=== PATIENT | female | born 1940 | race Caucasian/White ===

== ENCOUNTER 2017-01-18 21:26 | Inpatient (IN) | payer MEDICARE, BC ==
--- NOTE | 2017-01-18 22:13 | ERPHSYRPT ---
- History of Present Illness Time Seen by Provider: 01/18/17 22:02 Historian: patient Exam Limitations: no limitations Patient Subjective Stated Complaint: pt c/o weakness and dark tarry stools since friday. also c/o lt lower abd pain that sometimes radiates to lt flank which began today Triage Nursing Assessment: pt alert and oreinted, asnwers questions approp. pt ambulatory with steady gait ntoed. respirations nonlabored with lungs cta. abd soft and nontender. bowel sounds present in all 4 quads. no stool assessed at this time Physician History: 76-year-old white female with history of congestive heart failure coronary artery disease hyperlipidemia high blood pressure myocardial infarction She arrives with complaint of a dark stools which have been tarry symptoms since Friday 3 days ago. She states she had an EGD yesterday she is due to have a colonoscopy in the future. She states today she is having left flank pain which radiates to her back. Patient states she has had dark stools she has not had obvious blood. Patient states she feels weak. Patient states she had blood work drawn this morning which showed a hemoglobin of 8.7. Patient is not vomiting Past medical history includes congestive heart failure, coronary artery disease , hyperlipidemia, high blood pressure, myocardial infarction. Past surgical history includes coronary artery bypass graft, hysterectomy, right carotid endarterectomy. Patient had a cardiac stent 3 weeks ago. Timing/Duration: day(s) (3 days) Activities at Onset: none Quality: aching Abdominal Pain Onset Location: LLQ Pain Radiation: no radiation Modifying Factors: Worsens With: analgesics, antacids, breathing, coughing, defecating, eating, exercise, lying down, movement, palpation, rest, urinating, vomiting, position, walking Associated Symptoms: back (left flank pain radiating to left lower quadrant), other (dark tarry stools), No chest pain, No diaphoresis, No diarrhea, No fever/ chills, No fatigue, No headache, No heartburn, No loss of appetite, No nausea, No neck pain, No rash, No shortness of breath, No syncope, No vomiting Previous symptoms: other (atient recently treated at [facility] had EGD performed yesterday) Allergies/Adverse Reactions: No Known Drug Allergies Allergy (Verified 01/18/17 22:00) Home Medications: Aspirin 81 gm Chew [Baby Aspirin 81 mg Chew] 81 mg PO DAILY 01/02/14 [ History] Metoprolol Succinate 50 mg [Toprol Xl 50 MG] 50 mg PO DAILY 01/02/14 [ History] Simvastatin [Zocor] 10 mg PO DAILY 01/02/14 [History] Clopidogrel Bisulfate 75 mg [PLAVIX 75 MG Tablet] 75 mg PO DAILY 01/18/17 [History] Losartan Potassium 50 mg [Cozaar 50 MG] 50 mg PO DAILY 01/18/17 [History] PANTOPRAZOLE 40 mg Tablet [Protonix 40MG Tablet] 40 mg PO QPM 01/18/17 [ History] Hx Tetanus, Diphtheria Vaccination/Date Given: Yes Hx Influenza Vaccination/Date Given: No (2013) Hx Pneumococcal Vaccination/Date Given: No (december 2013) Immunizations Up to Date: Yes - Review of Systems Constitutional: Weakness, No Fever, No Chills Eyes: No Symptoms Ears, Nose, & Throat: No Symptoms Respiratory: No Cough, No Dyspnea Cardiac: No Chest Pain, No Edema, No Syncope Abdominal/Gastrointestinal: Abdominal Pain, Melena, Other (left flank pain radiating to left lower quadrant), No Nausea, No Vomiting, No Diarrhea, No Constipation, No Hematochezia, No Dysphagia, No Appetite Changes Genitourinary Symptoms: No Dysuria Musculoskeletal: No Back Pain, No Neck Pain Skin: No Rash Neurological: No Dizziness, No Focal Weakness, No Sensory Changes Psychological: No Symptoms Endocrine: No Symptoms All Other Systems: Reviewed and Negative - Past Medical History Pertinent Past Medical History: Yes Neurological History: No Pertinent History ENT History: No Pertinent History Cardiac History: High Cholesterol, Hypertension, Other Respiratory History: No Pertinent History Endocrine Medical History: No Pertinent History Musculoskeletal History: No Pertinent History GI Medical History: Colitis History: No Pertinent History Psycho-Social History: No Pertinent History Female Reproductive Disorders: No Pertinent History Other Medical History: states recent open heart surgery - Past Surgical History Past Surgical History: Yes Neuro Surgical History: No Pertinent History Cardiac: CABG, Cardiac Catheterization, Cardiac Stent Respiratory: No Pertinent History Gastrointestinal: No Pertinent History Genitourinary: No Pertinent History Musculoskeletal: No Pertinent History Female Surgical History: Hysterectomy Other Surgical History: childbirth x two,open heart evelyn 21 2014 double bipass and carotid artery. cardiac stent [address] padilla - Social History Smoking Status: Never smoker Exposure to second hand smoke: No Drug Use: none Patient Lives Alone: No - Nursing Vital Signs Nursing Vital Signs: Initial Vital Signs Temperature 98.1 F Temperature Source Oral Pulse Rate 74 Respiratory Rate 18 Blood Pressure [Right Arm] 141/74 Pain Intensity 7 - Physical Exam General Appearance: mild distress Eye Exam: PERRL/EOMI, eyes nml inspection Ears, Nose, Throat Exam: normal ENT inspection, pharynx normal, moist mucous membranes Neck Exam: normal inspection, non-tender, supple, full range of motion Respiratory Exam: normal breath sounds, lungs clear, No respiratory distress Cardiovascular Exam: regular rate/rhythm, normal heart sounds Gastrointestinal/Abdomen Exam: soft, normal bowel sounds, tenderness (minimal tenderness left lower quadrant) Rectal Exam: normal rectal tone, other (melanotic stool) Back Exam: normal inspection, normal range of motion, No CVA tenderness, No vertebral tenderness Extremity Exam: normal inspection, normal range of motion, pelvis stable Neurologic Exam: alert, oriented x 3, cooperative, normal mood/affect, nml cerebellar function, sensation nml, No motor deficits Skin Exam: normal color, warm, dry SpO2 Interpretation: normal (97%) SpO2: 97 Oxygen Delivery: Room Air Ordered Tests: Active Orders 24 hr Category Date Time Status Bedrest with BRP/BSC ROUTINE Activity 01/19/17 00:55 Active Admission/Status Order ROUTINE Care 01/19/17 00:55 Active Call Admit Doctor for Orders ON ADMISSION Care 01/19/17 00:55 Active Code Status Order ROUTINE Care 01/19/17 00:55 Active IV Care Q6H Care 01/19/17 00:55 Active IV Insertion STAT Care 01/18/17 21:57 Completed IV Insertion-2nd Peripheral STAT Care 01/19/17 00:09 Completed Orthostatic Vital Signs STAT Care 01/18/17 22:08 Completed Telemetry Q4H Care 01/19/17 00:55 Active Consult Surgery ROUTINE Cons 01/19/17 00:55 Active Clear Liquid Diet 01/19/17 Breakfast Active CBC W DIFF AM.LAB Lab 01/19/17 04:00 Ordered CBC W DIFF Stat Lab 01/18/17 22:28 Completed CMP AM.LAB Lab 01/19/17 04:00 Ordered CMP Stat Lab 01/18/17 22:28 Completed Occult Blood,Stool Other Stat Lab 01/18/17 23:57 Completed PROTIME WITH INR Stat Lab 01/18/17 22:28 Completed PTT Stat Lab 01/18/17 22:28 Completed UA W/RFX UR CULTURE Stat Lab 01/18/17 22:08 Ordered Transfer Order Routine Transfer 01/19/17 00:09 Completed Medication Summary Generic Name Dose Route Start Last Admin Trade Name Freq PRN Reason Stop Dose Admin Sodium Chloride 1,000 mls @ 100 mls/hr 01/19/17 00:55 Sodium Chloride 0.9% 1000 Ml IV 02/18/17 00:54 .Q10H MARILY Morphine Sulfate 4 mg 01/19/17 01:38 01/19/17 01:41 Morphine Sulfate 4 Mg Inj IV 01/24/17 01:37 4 mg Q4H PRN PRN Administration PAIN Pantoprazole Sodium 40 mg 01/19/17 10:00 Protonix 40 Mg Iv IV 02/18/17 09:59 Q24H10 MARILY Discontinued Medications Generic Name Dose Route Start Last Admin Trade Name Freq PRN Reason Stop Dose Admin Sodium Chloride 1,000 mls @ 100 mls/hr 01/18/17 22:15 01/18/17 22:18 Sodium Chloride 0.9% 1000 Ml IV 02/17/17 22:14 100 mls/hr .Q10H MARILY Administration Sodium Chloride Confirm 01/18/17 22:16 Sodium Chloride 0.9% 1000 Ml Administered 01/18/17 22:17 Dose 1,000 mls @ ud .ROUTE .STK-MED ONE Pantoprazole Sodium 40 mg 01/19/17 00:06 01/19/17 00:17 Protonix 40 Mg Iv IV 01/19/17 00:07 40 mg STAT ONE Administration Pantoprazole Sodium Confirm 01/19/17 00:16 Protonix 40 Mg Iv Administered 01/19/17 00:17 Dose 40 mg IV .STK-MED ONE Lab/Rad Data: Laboratory Result Diagrams 01/18/17 22:28 01/18/17 22:28 Laboratory Results 01/19/17 01/19/17 01/18/17 Range/Units 00:22 00:20 23:57 WBC (4.0-10.5) K/mm3 RBC (4.1-5.4) M/mm3 Hgb (12.0-16.0) gm/dl Hct (35-47) % MCV (78-100) fl MCH (26-32) pg MCHC (32-36) g/dl RDW (11.5-14.0) % Plt Count (150-450) K/mm3 MPV (6-9.5) fl Gran % (36.0-66.0) % Lymphocytes % (24.0-44.0) % Monocytes % (0.0-12.0) % Eosinophils % (0.00-5.0) % Basophils % (0.0-0.4) % Basophils # (0-0.4) INR (0.8-3.0) APTT (25.3-37.0) SECONDS Sodium (136-145) mEq/L Potassium (3.5-5.1) mEq/L Chloride (98-107) mEq/L Carbon Dioxide (21-32) mEq/L Anion Gap (5-15) MEQ/L BUN (9-20) mg/dL Creatinine (0.55-1.30) mg/dl Estimated GFR ML/MIN Glucose (70-110) MG/DL Calcium (8.5-10.1) mg/dL Total Bilirubin (0.2-1.0) mg/dL AST (15-37) U/L ALT (12-78) U/L Alkaline Phosphatase (46-116) U/L Serum Total Protein (6.4-8.2) gm/dL Albumin (3.4-5.0) g/dL Stool Occult Blood POSITIVE (Negative) ABO Group Rh Factor Antibody Screen (NEGATIVE) Crossmatch COMPATIBLE COMPATIBLE (COMPATIBLE) 01/18/17 01/18/17 01/18/17 Range/Units 22:28 22:28 22:28 WBC 4.7 (4.0-10.5) K/mm3 RBC 2.55 L (4.1-5.4) M/mm3 Hgb 8.0 L (12.0-16.0) gm/dl Hct 25.0 L (35-47) % MCV 98.0 (78-100) fl MCH 31.3 (26-32) pg MCHC 32.0 (32-36) g/dl RDW 12.2 (11.5-14.0) % Plt Count 177 (150-450) K/mm3 MPV 10.7 H (6-9.5) fl Gran % 61.9 (36.0-66.0) % Lymphocytes % 25.2 (24.0-44.0) % Monocytes % 10.8 (0.0-12.0) % Eosinophils % 1.9 (0.00-5.0) % Basophils % 0.2 (0.0-0.4) % Basophils # 0.01 (0-0.4) INR 0.95 (0.8-3.0) APTT 29.3 (25.3-37.0) SECONDS Sodium 139 (136-145) mEq/L Potassium 4.4 (3.5-5.1) mEq/L Chloride 104 (98-107) mEq/L Carbon Dioxide 28.0 (21-32) mEq/L Anion Gap 11.8 (5-15) MEQ/L BUN 22 H (9-20) mg/dL Creatinine 1.12 (0.55-1.30) mg/dl Estimated GFR 50 ML/MIN Glucose 109 (70-110) MG/DL Calcium 9.0 (8.5-10.1) mg/dL Total Bilirubin 0.30 (0.2-1.0) mg/dL AST 19 (15-37) U/L ALT 18 (12-78) U/L Alkaline Phosphatase 60 (46-116) U/L Serum Total Protein 5.9 L (6.4-8.2) gm/dL Albumin 3.8 (3.4-5.0) g/dL Stool Occult Blood (Negative) ABO Group Rh Factor Antibody Screen (NEGATIVE) Crossmatch (COMPATIBLE) 01/18/17 Range/Units 00:32 WBC (4.0-10.5) K/mm3 RBC (4.1-5.4) M/mm3 Hgb (12.0-16.0) gm/dl Hct (35-47) % MCV (78-100) fl MCH (26-32) pg MCHC (32-36) g/dl RDW (11.5-14.0) % Plt Count (150-450) K/mm3 MPV (6-9.5) fl Gran % (36.0-66.0) % Lymphocytes % (24.0-44.0) % Monocytes % (0.0-12.0) % Eosinophils % (0.00-5.0) % Basophils % (0.0-0.4) % Basophils # (0-0.4) INR (0.8-3.0) APTT (25.3-37.0) SECONDS Sodium (136-145) mEq/L Potassium (3.5-5.1) mEq/L Chloride (98-107) mEq/L Carbon Dioxide (21-32) mEq/L Anion Gap (5-15) MEQ/L BUN (9-20) mg/dL Creatinine (0.55-1.30) mg/dl Estimated GFR ML/MIN Glucose (70-110) MG/DL Calcium (8.5-10.1) mg/dL Total Bilirubin (0.2-1.0) mg/dL AST (15-37) U/L ALT (12-78) U/L Alkaline Phosphatase (46-116) U/L Serum Total Protein (6.4-8.2) gm/dL Albumin (3.4-5.0) g/dL Stool Occult Blood (Negative) ABO Group O Rh Factor POSITIVE Antibody Screen NEGATIVE (NEGATIVE) Crossmatch (COMPATIBLE) - Progress Progress: improved Progress Note: 01/19/17 00:03 This is a 76-year-old white female who recently had a EGD was diagnosed as having ulcer she arrives with complaint of lower left abdominal pain symptoms going on for several days. Patient was due to have colonoscopy by Dr. Bruno in the future patient states she's been having dark tarry stools. Patient had a hemoglobin done this morning which showed a hemoglobin 8.8. On physical examination patient does not appear to be acute distress she does have some very mild left lower quadrant abdominal tenderness rectal exam shows melanotic stools which are positive for occult blood. Vitals are stable. I have ordered normal saline 100 mL per hour I ordered type and crossmatch for 2 units packed red cells to place on hold. I have discussed case with Dr. Luna content strategist for Dr. Montemayor. Will place patient on observation telemetry. Will give patient Protonix 40 mg IV tonight repeat CBC CMP and morning and write for consult with Dr. Bruno. - Departure Time of Disposition: 00:45 Departure Disposition: Observation Clinical Impression: GI bleed Qualifiers: GI bleed type/associated pathology: melena Qualified Code(s): K92.1 - Melena Condition: Fair Critical Care Time: No
[2017-01-18] MEDS ORDERED: Sodium Chloride 0.9% 1000 ML 1,000 ML IV SCH (22:15)
[2017-01-18] MEDS ORDERED: Sodium Chloride 0.9% 1000 ML 1,000 ML ONE (22:16)
[2017-01-18 22:39] LABS: BASOPHIL % 0.2 % (0.0-0.4); Eosinophil % 1.9 % (0.00-5.0); Granulocytes % 61.9 % (36.0-66.0); Lymphocytes % 25.2 % (24.0-44.0); Mean Platelet Volume 10.7 fl (6-9.5); Monocytes % 10.8 % (0.0-12.0); Platelet Count 177 K/mm3 (150-450); Red Blood Count 2.55 M/mm3 (4.1-5.4); Red Cell Distribution Width 12.2 % (11.5-14.0); White Blood Count 4.7 K/mm3 (4.0-10.5)
[2017-01-18 22:41] LABS: Mean Corpuscular Hemoglobin 31.3 pg (26-32)
[2017-01-18 22:54] LABS: INR 0.95 (0.8-3.0); PROTIME 10.7 SECONDS (9.95-12.35)
[2017-01-18 22:57] LABS: PTT 29.3 SECONDS (25.3-37.0)
[2017-01-18 22:58] LABS: ALBUMIN 3.8 g/dL (3.4-5.0); ANION GAP 11.8 MEQ/L (5-15); BILIRUBIN,TOTAL 0.3 mg/dL (0.2-1.0); Potassium 4.4 mEq/L (3.5-5.1); Total Protein 5.9 gm/dL (6.4-8.2)
[2017-01-19] MEDS ORDERED: PROTONIX 40 MG IV IV ONE ×2 (00:06→00:16)
[2017-01-19] MEDS: MORPHINE SULFATE 4 MG INJ IV PRN ×2 (01:41→22:07)
[2017-01-19 06:51] LABS: BASOPHIL % 0.5 % (0.0-0.4); Eosinophil % 2.9 % (0.00-5.0); Granulocytes % 56.9 % (36.0-66.0); Lymphocytes % 29.9 % (24.0-44.0); Mean Cell Volume 98.4 fl (78-100); Monocytes % 9.8 % (0.0-12.0); Platelet Count 153 K/mm3 (150-450); Red Blood Count 2.48 M/mm3 (4.1-5.4); Red Cell Distribution Width 12.2 % (11.5-14.0); White Blood Count 4.1 K/mm3 (4.0-10.5)
[2017-01-19 07:06] LABS: Mean Corpuscular Hemoglobin 31.8 pg (26-32)
[2017-01-19 07:29] LABS: ALBUMIN 3.4 g/dL (3.4-5.0); ANION GAP 10.1 MEQ/L (5-15); BILIRUBIN,TOTAL 0.5 mg/dL (0.2-1.0); Carbon Dioxide 28.2 mEq/L (21-32); Potassium 4.3 mEq/L (3.5-5.1); Total Protein 5.6 gm/dL (6.4-8.2)
[2017-01-19] MEDS: Sodium Chloride 0.9% 1000 ML 1,000 ML IV SCH ×2 (08:00→18:03)
[2017-01-19] MEDS ORDERED: Zofran 4 MG/2 ML VIAL IV PRN (09:24)
--- NOTE | 2017-01-19 09:24 | PCM.HP ---
History of Present Illness - Chief Complaint Chief Complaint: GI bleed History of Present Illness: is a 76 year old female who developed acute onset of LLQ and left lower flank pain last night, in association she passed a black tarry stool so came for evaluation. She recently had an EGD at [facility] by Dr Bruno that showed some healing ulcers per her report. She does take aspirin, plavix and is currently on protonix. - Review of Systems Constitutional: No Fever, No Chills Respiratory: No Cough, No Short Of Breath Cardiac: No Chest Pain, No Edema, No Syncope Abdominal/Gastrointestinal: Abdominal Pain, Melena, No Nausea, No Vomiting, No Diarrhea Genitourinary Symptoms: No Dysuria Skin: No Rash All Other Systems: Reviewed and Negative Medications & Allergies Home Medications: Home Medication List Aspirin 81 gm Chew [Baby Aspirin 81 mg Chew] 81 mg PO DAILY 01/02/14 [ History Confirmed 01/18/17] Metoprolol Succinate 50 mg [Toprol Xl 50 MG] 50 mg PO DAILY 01/02/14 [ History Confirmed 01/18/17] Simvastatin [Zocor] 10 mg PO DAILY 01/02/14 [History Confirmed 01/18/17] Clopidogrel Bisulfate 75 mg [PLAVIX 75 MG Tablet] 75 mg PO DAILY 01/18/17 [History Confirmed 01/18/17] Losartan Potassium 50 mg [Cozaar 50 MG] 50 mg PO DAILY 01/18/17 [History Confirmed 01/18/17] PANTOPRAZOLE 40 mg Tablet [Protonix 40MG Tablet] 40 mg PO QPM 01/18/17 [ History Confirmed 01/18/17] Allergies/Adverse Reactions: Allergies Allergy/AdvReac Type Severity Reaction Status Date / Time No Known Drug Allergies Allergy Verified 01/18/17 22:00 - Past Medical History Past Medical History: Yes Neurological History: No Pertinent History ENT History: No Pertinent History Cardiac History: High Cholesterol, Hypertension, Other Respiratory History: No Pertinent History Endocrine Medical History: No Pertinent History Musculoskelatal History: No Pertinent History GI Medical History: Colitis History: No Pertinent History Pyscho-Social History: No Pertinent History Reproductive Disorders: No Pertinent History Comment: states recent open heart surgery - Female History Are you now?: No - Past Surgical History Past Surgical History: Yes Neuro Surgical History: No Pertinent History Cardiac History: CABG, Cardiac Catheterization, Cardiac Stent Respiratory Surgery: No Pertinent History GI Surgical History: No Pertinent History Genitourinary Surgical Hx: No Pertinent History Musculskeletal Surgical Hx: No Pertinent History Female Surgical History: Hysterectomy Other Surgical History: childbirth x two,open heart december 25 2013 double bipass and carotid artery. cardiac stent [address] padilla - Social History Smoking Status: Never smoker Exposure to second hand smoke: No Alcohol: None Drug Use: none - Physical Exam Vital Signs: Vital Signs - 24 hr Temp Pulse Resp BP Pulse Ox 01/19/17 08:00 97.6 F 68 18 128/61 97 01/19/17 04:47 97 01/19/17 04:00 98.1 F 72 16 132/64 96 01/19/17 01:11 97.9 F 77 18 169/72 97 01/19/17 00:33 74 18 141/74 96 01/18/17 22:19 64 16 125/61 97 01/18/17 21:47 98.1 F 73 18 148/110 97 General Appearance: no apparent distress, alert Respiratory Exam: normal breath sounds, lungs clear, No respiratory distress Cardiovascular Exam: regular rate/rhythm, normal heart sounds, normal peripheral pulses Gastrointestinal/Abdomen Exam: soft, normal bowel sounds, No tenderness, No mass Extremity Exam: normal inspection, normal range of motion, pelvis stable Skin Exam: normal color, warm, dry, No rash Results - Labs Lab/Micro Results: Lab Results-Last 24 Hours 01/19/17 01/19/17 Range/Units 05:15 05:15 WBC 4.1 (4.0-10.5) K/mm3 RBC 2.48 L (4.1-5.4) M/mm3 Hgb 7.9 L (12.0-16.0) gm/dl Hct 24.4 L (35-47) % MCV 98.4 (78-100) fl MCH 31.8 (26-32) pg MCHC 32.4 (32-36) g/dl RDW 12.2 (11.5-14.0) % Plt Count 153 (150-450) K/mm3 MPV 11.0 H (6-9.5) fl Gran % 56.9 (36.0-66.0) % Lymphocytes % 29.9 (24.0-44.0) % Monocytes % 9.8 (0.0-12.0) % Eosinophils % 2.9 (0.00-5.0) % Basophils % 0.5 (0.0-0.4) % Basophils # 0.02 (0-0.4) Sodium 141 (136-145) mEq/L Potassium 4.3 (3.5-5.1) mEq/L Chloride 107 (98-107) mEq/L Carbon Dioxide 28.2 (21-32) mEq/L Anion Gap 10.1 (5-15) MEQ/L BUN 18 (9-20) mg/dL Creatinine 1.01 (0.55-1.30) mg/dl Estimated GFR 56 ML/MIN Glucose 105 (70-110) MG/DL Calcium 8.7 (8.5-10.1) mg/dL Total Bilirubin 0.50 (0.2-1.0) mg/dL AST 18 (15-37) U/L ALT 22 (12-78) U/L Alkaline Phosphatase 45 L (46-116) U/L Serum Total Protein 5.6 L (6.4-8.2) gm/dL Albumin 3.4 (3.4-5.0) g/dL - Radiology Impressions Radiology Exams & Impressions: Radiology Procedures Category Date Time Status ABDOMEN AND PELVIS W CONTRAST [CT] Urgent Exams 01/19/17 08:44 Ordered Assessment/Plan (1) GI bleed Current Visit: Yes Status: Acute Qualifiers: GI bleed type/associated pathology: melena Qualified Code(s): K92.1 - Melena Assessment & Plan: continue IV protonix at this time, possible colonoscopy in the am with Dr Montes Code(s): K92.2 - GASTROINTESTINAL HEMORRHAGE, UNSPECIFIED (2) LLQ abdominal pain Current Visit: Yes Status: Acute Assessment & Plan: patient taking PO contrast for CT abd/pelvis per surgery. Code(s): R10.32 - LEFT LOWER QUADRANT PAIN
[2017-01-19] MEDS: PROTONIX 40 MG IV IV SCH (11:13)
[2017-01-19] MEDS: Cozaar 50 MG PO SCH (11:13)
[2017-01-19] MEDS: Toprol Xl 50 MG PO SCH (11:13)
[2017-01-19 13:07] LABS: Collection Type CLEAN CATCH
[2017-01-19 13:08] LABS: ADD URINE CULTURE? NO (NO); Bilirubin NEGATIVE (NEGATIVE); Blood NEGATIVE Ery/ul (0-5); COMPLETE URINE MICROSCOPIC? NO; Glucose 50 mg/dL (NEGATIVE); Leukocyte Esterase NEGATIVE (NEGATIVE)
[2017-01-19] MEDS ORDERED: Golytely Solution 4000 ML PO ONE (14:45)
[2017-01-19] MEDS ORDERED: Lactated Ringers 1,000 ML IV SCH (15:30)
--- NOTE | 2017-01-19 19:47 | XRAY ---
Indication: Lower abdominal/pelvic pain with black stool. Dizziness. Multiple contiguous axial images obtained through the abdomen and pelvis using 80 cc of Isovue 370 contrast. Oral contrast also given. Comparison: August 02, 2014. Lung bases demonstrates minimal bibasilar dependent atelectasis. Heart is not enlarged. Stomach is distended with contrast. Contrasted bowel loops appear nonobstructed. There remains sigmoid diverticulosis with small focus of mild diverticulitis less than before. No free fluid/air. Normal appendix. Stable 2 cm gallstone, 5 mm hepatic hemangioma, calcified splenic granulomas, hysterectomy, and tiny fatty umbilical hernia. Remaining liver, gallbladder, pancreas, spleen, adrenal glands, kidneys, ureters, and bladder appear unremarkable. Again mild aortoiliac calcifications. No AAA or pathologic retroperitoneal lymphadenopathy. Osseous structures intact again with mild degenerative changes throughout the spine. Impression: 1. Sigmoid diverticulosis with small focus of mild midsigmoid diverticulitis. No free fluid/air. 2. Stable gallstone, hepatic hemangioma, and tiny fatty umbilical hernia. CTDI 17.07
[2017-01-20] MEDS: Sodium Chloride 0.9% 1000 ML 1,000 ML IV SCH ×2 (03:59→17:01)
[2017-01-20 06:24] LABS: BASOPHIL % 0.3 % (0.0-0.4); Granulocytes % 62.7 % (36.0-66.0); Lymphocytes % 24.7 % (24.0-44.0); Mean Cell Volume 99.6 fl (78-100); Mean Corpuscular Hemoglobin 31.6 pg (26-32); Mean Platelet Volume 10.8 fl (6-9.5); Monocytes % 9.3 % (0.0-12.0); Platelet Count 169 K/mm3 (150-450); Red Blood Count 2.34 M/mm3 (4.1-5.4); Red Cell Distribution Width 12.9 % (11.5-14.0)
[2017-01-20 07:08] LABS: ALBUMIN 3.2 g/dL (3.4-5.0); ALKALINE PHOSPHATASE 38 U/L (46-116); ANION GAP 10.3 MEQ/L (5-15); BLOOD UREA NITROGEN 7 mg/dL (9-20); CHLORIDE 108 mEq/L (98-107); Carbon Dioxide 28.5 mEq/L (21-32); Glucose 98 MG/DL (70-110); Potassium 3.9 mEq/L (3.5-5.1); SGOT/AST 24 U/L (15-37); SGPT/ALT 17 U/L (12-78); SODIUM 143 mEq/L (136-145); Total Protein 5.5 gm/dL (6.4-8.2)
[2017-01-20] MEDS ORDERED: PHENYLEPHRINE HCL IJ ONE (08:00)
[2017-01-20] MEDS ORDERED: DIPRIVAN 200 MG/20 ML IV ONE (08:00)
--- NOTE | 2017-01-20 08:08 | PCM.NOTE ---
Date and Time: 01/20/17 0804 Subjective Assessment: weak and dizzy no chest pain frequent bm with prep and left lower quadrant pain now no fever no bloody or black stools now Objective Exam General Appearance: no apparent distress, alert, obese Neurologic Exam: alert, oriented x 3, cooperative, normal mood/affect, nml cerebellar function, sensation nml, No motor deficits Skin Exam: normal color, warm, dry Eye Exam: PERRL, EOMI, eyes nml inspection, pale conjunctivae Ears, Nose, Throat Exam: normal ENT inspection, pharynx normal, moist mucous membranes Neck Exam: normal inspection, non-tender, supple, full range of motion Respiratory Exam: normal breath sounds, lungs clear, No respiratory distress Cardiovascular Exam: regular rate/rhythm, normal heart sounds Gastrointestinal/Abdomen Exam: soft, tenderness (left lower quadrant), No mass Extremity Exam: normal inspection, normal range of motion Back Exam: normal inspection, normal range of motion, No CVA tenderness, No vertebral tenderness Pelvic Exam: deferred Rectal Exam: deferred OBJECTIVE DATA Vital Signs: Vital Signs - 24 hr Temp Pulse Resp BP Pulse Ox 01/20/17 07:55 98.0 F 76 18 146/70 95 01/20/17 04:00 97.9 F 78 19 137/62 92 L 01/20/17 00:00 98.1 F 76 18 125/61 93 L 01/19/17 20:00 98.1 F 74 18 151/65 96 01/19/17 16:00 97.3 F 59 L 18 145/66 98 01/19/17 12:00 97.8 F 65 18 134/61 95 Pain Assessment - Last Documented Pain Intensity 7 Pain Scale Used 0-10 Pain Scale Intake and Output: Intake & Output 01/17/17 01/18/17 01/19/17 01/20/17 11:59 11:59 11:59 11:59 Intake Total 600 2303 Balance 600 2303 Weight 68.765 kg Lab Results: Lab Results-Last 24 Hours 01/19/17 01/20/17 01/20/17 Range/Units 11:30 05:15 05:15 WBC 4.0 (4.0-10.5) K/mm3 RBC 2.34 L (4.1-5.4) M/mm3 Hgb 7.4 L (12.0-16.0) gm/dl Hct 23.3 L (35-47) % MCV 99.6 (78-100) fl MCH 31.6 (26-32) pg MCHC 31.8 L (32-36) g/dl RDW 12.9 (11.5-14.0) % Plt Count 169 (150-450) K/mm3 MPV 10.8 H (6-9.5) fl Gran % 62.7 (36.0-66.0) % Lymphocytes % 24.7 (24.0-44.0) % Monocytes % 9.3 (0.0-12.0) % Eosinophils % 3.0 (0.00-5.0) % Basophils % 0.3 (0.0-0.4) % Basophils # 0.01 (0-0.4) Sodium 143 (136-145) mEq/L Potassium 3.9 (3.5-5.1) mEq/L Chloride 108 H (98-107) mEq/L Carbon Dioxide 28.5 (21-32) mEq/L Anion Gap 10.3 (5-15) MEQ/L BUN 7 L (9-20) mg/dL Creatinine 0.77 (0.55-1.30) mg/dl Estimated GFR > 60 ML/MIN Glucose 98 (70-110) MG/DL Calcium 8.3 L (8.5-10.1) mg/dL Total Bilirubin 0.40 (0.2-1.0) mg/dL AST 24 (15-37) U/L ALT 17 (12-78) U/L Alkaline Phosphatase 38 L (46-116) U/L Serum Total Protein 5.5 L (6.4-8.2) gm/dL Albumin 3.2 L (3.4-5.0) g/dL Ur Collection Type CLEAN CATCH Urine Color YELLOW (YELLOW) Urine Appearance CLEAR (CLEAR) Urine pH 5.0 (5-6) Ur Specific [place] 1.010 (1.005-1.025) Urine Protein NEGATIVE (Negative) Urine Ketones NEGATIVE (NEGATIVE) Urine Blood NEGATIVE (0-5) [place]lin/ul Urine Nitrite NEGATIVE (NEGATIVE) Urine Bilirubin NEGATIVE (NEGATIVE) Urine Urobilinogen NORMAL (0-1) mg/dL Ur Leukocyte Esterase NEGATIVE (NEGATIVE) Urine Glucose 50 (NEGATIVE) mg/dL Specimen Received 01/19/17 1130 Radiology Exams: Radiology Procedures Category Date Time Status ABDOMEN AND PELVIS W CONTRAST [CT] Urgent Exams 01/19/17 08:44 Completed Assessment/Plan (1) Diverticulitis Current Visit: Yes Status: Acute Assessment & Plan: sigmoid added flagyl and levoquin today Dr. Montes did bowel prep for colonoscopy will await his decision if proceed with this or not (2) GI bleed Current Visit: Yes Status: Acute Qualifiers: GI bleed type/associated pathology: melena Qualified Code(s): K92.1 - Melena Assessment & Plan: with PUD on protonix and carafate needs to restart asa and plavix with cardiac stent 3 weeks ago symptomatic with trending down hgb at 7.4 this am will transfuse 2 Units prbc will call Dr. Lance today about her stent and her antiplts but needs restarted as soon as possible Code(s): K92.2 - GASTROINTESTINAL HEMORRHAGE, UNSPECIFIED (3) Coronary arteriosclerosis Current Visit: Yes Status: Acute (4) Acute blood loss anemia Current Visit: Yes Status: Acute Code(s): D62 - ACUTE POSTHEMORRHAGIC ANEMIA (5) Peptic ulcer disease Current Visit: Yes Status: Acute Code(s): K27.9 - PEPTIC ULC, SITE UNSP, UNSP AC OR CHR, W/O HEMOR OR PERF
--- NOTE | 2017-01-20 08:21 | CONS ---
CONSULT DATE: 01/19/17 HISTORY OF PRESENT ILLNESS: The patient is a 76 y/o who came in with some left flank pain radiating to the left lower quadrant. She had had anemia, dizziness, and weakness and came in. sounds like she didn't have CT scan yet at this time. She had had an upper endoscopy that showed some non-bleeding, healing, gastric ulcerations. She was due to be set up eventually for colonoscopy. She had had 1 dark stool prior to coming to the hospital. Has not had any since then. Her Hgb was 7.9. She had an Hgb of 7.7-8 range when she was in the hospital at [facility]. WBC 4.1, Hgb 7.9, platelets 153,000. She is on Plavix as she had a stent placed 3 weeks ago. PAST MEDICAL HISTORY: She has had the heart disease and had the stent placed 3 weeks ago. She has had a history of gastrointestinal bleed. Otherwise, her Hgb is stable at 7.9 from 8.0 on admission yesterday. She has had heart disease, colitis, hypertension, and hypercholesterolemia. PAST SURGICAL HISTORY: Includes coronary artery bypass graft, coronary stent, cardiac cath, and hysterectomy. She had carotid artery intervention worked on in the past. HOME MEDICATIONS: Aspirin, metoprolol, simvastatin, Plavix, losartan, pantoprazole. ALLERGIES: NKDA. SOCIAL HISTORY: No smoking or alcohol abuse. REVIEW OF SYSTEMS: Otherwise, no chest pain or palpitations currently. She had some hyperlipidemia. She had the right carotid endarterectomy in the past. Other systems negative or noncontributory other than above and per preadmission questionnaire. She had the weakness and the pain left flank to left lower quadrant. It is improved a little bit today. 12 systems reviewed as noted above and per admission assessment. She denied any bloody stools this morning. She did have a dark stool prior to coming in yesterday. PHYSICAL EXAMINATION: GENERAL: No acute distress. HEENT: Sclerae nonicteric. NECK: No JVD. CHEST: Equal excursion. Nonlabored breathing. CVS: Regular rate and rhythm. ABDOMEN: Soft. No peritoneal signs currently. Her left flank pain and left lower quadrant pain is improved today. IMPRESSION: ANEMIA, HISTORY OF GASTROINTESTINAL BLEED, HISTORY OF ULCER DISEASE. She had prior colonoscopy a couple years ago that showed diverticular disease, no polyps. Feel she would benefit from colonoscopy to rule out any other lower gastrointestinal source. Otherwise, may simply be the fact that she is on the Plavix. If she kept having C-scope unremarkable and she kept having bleeding episodes, may need to consider pill cam, bleeding scan, or other work-up, but at this time, the pain is improved, but given the fact and location of her pain, feel she needs a CT scan abdomen and pelvis with IV and oral contrast to rule out any acute diverticulitis. If she does not have acute diverticulitis, likely could bowel prep her and proceed with colonoscopy while she is in the hospital at this time. She was explained the risks and benefits including, but not limited to, bleeding; infection; small risk of bowel injury or perforation possibly requiring open procedure; small risk of missed or nondiagnosis or incomplete exam possibly requiring barium enema or other studies or procedures. She understands and agrees to the planned procedure. Will check a CT scan abdomen/pelvis. If it does not show any signs of acute diverticulitis, likely will be able to bowel prep and proceed with colonoscopy tomorrow when OR time available. They understand and agree to the plan. Thank you for the consult. Dr. Steve is on-call for our group today. I was rounding on patients and he asked that I see this patient while I was down here.
[2017-01-20] MEDS: Toprol Xl 50 MG PO SCH (09:30)
[2017-01-20] MEDS: Cozaar 50 MG PO SCH (09:30)
[2017-01-20] MEDS: PROTONIX 40 MG IV IV SCH (09:31)
[2017-01-20] MEDS: Levofloxacin 500MG/100ML D5W 500 MG/100 ML BAG IV SCH (09:41)
[2017-01-20] MEDS: FLAGYL 500 MG IVPB 500 MG/100 ML BAG IV SCH ×3 (11:11→23:30)
[2017-01-20] MEDS ORDERED: Lactated Ringers 1,000 ML IV ONE (16:06)
[2017-01-20] MEDS: MORPHINE SULFATE 4 MG INJ IV PRN (16:57)
[2017-01-20] MEDS ORDERED: PLAVIX 75 MG Tablet PO ONE (17:13)
[2017-01-20] MEDS ORDERED: Ambien 5 MG Tablet PO PRN (20:26)
[2017-01-20] MEDS: Carafate SUSPENSION 1000 MG/10 ML PO SCH (20:27)
[2017-01-21] MEDS: FLAGYL 500 MG IVPB 500 MG/100 ML BAG IV SCH (05:06)
[2017-01-21 06:30] LABS: Mean Cell Volume 93.5 fl (78-100); Mean Corpuscular Hemoglobin 31.8 pg (26-32); Mean Platelet Volume 10.6 fl (6-9.5); Platelet Count 175 K/mm3 (150-450); Red Blood Count 3.55 M/mm3 (4.1-5.4); Red Cell Distribution Width 14.9 % (11.5-14.0); White Blood Count 5.3 K/mm3 (4.0-10.5)
[2017-01-21 06:52] LABS: ALBUMIN 3.2 g/dL (3.4-5.0); ALKALINE PHOSPHATASE 45 U/L (46-116); ANION GAP 12.3 MEQ/L (5-15); BLOOD UREA NITROGEN 5 mg/dL (9-20); CHLORIDE 107 mEq/L (98-107); Carbon Dioxide 27.5 mEq/L (21-32); Glucose 107 MG/DL (70-110); Potassium 3.9 mEq/L (3.5-5.1); SGOT/AST 15 U/L (15-37); SGPT/ALT 18 U/L (12-78); SODIUM 143 mEq/L (136-145); Total Protein 5.8 gm/dL (6.4-8.2)
[2017-01-21] MEDS: Carafate SUSPENSION 1000 MG/10 ML PO SCH (07:23)
[2017-01-21 07:32] LABS: ANISOCYTOSIS 1+; Eosinophil 1 % (0.00-3.0); Platelet Estimate NORMAL (NORMAL); Polychromasia 1+; Total Cells Counted 100
[2017-01-21 08:11] VITALS: BP 193/89; PULSE 75; O2SAT 92
--- NOTE | 2017-01-21 08:21 | PCM.DCORD ---
- Discharge Discharge Date: 01/21/17 Disposition: Home, Self-Care Condition: Fair Prescriptions: New Aspirin [Aspirin EC] 81 mg PO DAILY #0 tablet. Ciprofloxacin HCl [Cipro] 500 mg PO BID #12 tablet Metronidazole 500 mg [Flagyl 500 MG] 500 mg PO TID #18 tablet Sucralfate 1000 mg/10 ml [Carafate SUSPENSION 1000 MG/10 ML] 1,000 mg PO ACHS #280 ml Tramadol HCl 50 mg [Ultram 50 mg] 50 mg PO Q4H PRN #12 tablet PRN Reason: Pain Continue Simvastatin [Zocor] 10 mg PO DAILY Metoprolol Succinate 50 mg [Toprol Xl 50 MG] 50 mg PO DAILY PANTOPRAZOLE 40 mg Tablet [Protonix 40MG Tablet] 40 mg PO QPM Losartan Potassium 50 mg [Cozaar 50 MG] 50 mg PO DAILY Clopidogrel Bisulfate 75 mg [PLAVIX 75 MG Tablet] 75 mg PO DAILY Discontinued Aspirin 81 gm Chew [Baby Aspirin 81 mg Chew] 81 mg PO DAILY Follow up with: LEONILA BELCHER [Primary Care Provider] - 1 Week JACINTA VELA [ACTIVE STAFF] - 1 Week TRISH KIRK [ACTIVE STAFF] - 1 Week Forms: Patient Portal Information
[2017-01-21] MEDS ORDERED: Lasix 20 MG/2 ML IV ONE (08:30)
[2017-01-21] MEDS: Cozaar 50 MG PO SCH (08:48)
[2017-01-21] MEDS: Levofloxacin 500MG/100ML D5W 500 MG/100 ML BAG IV SCH (08:48)
[2017-01-21] MEDS: Toprol Xl 50 MG PO SCH (08:48)
[2017-01-21] MEDS: PROTONIX 40 MG IV IV SCH (08:49)
[2017-01-21] MEDS ORDERED: PLAVIX 75 MG Tablet PO SCH (10:00)
--- NOTE | 2017-01-21 10:39 | OP ---
SURGERY DATE: 01/20/17 SURGERY TIME: 1551 PREOPERATIVE DIAGNOSIS: 1. HISTORY OF ANEMIA. 2. HISTORY OF RECTAL BLEEDING/MELENA. 3. PRIOR UPPER ENDOSCOPY PER DR. VELA. 4. REQUEST FOR LOWER ENDOSCOPY. POSTOPERATIVE DIAGNOSIS: 1. POOR PREP LIMITING THE EXAM. 2. DIVERTICULOSIS. 3. DESCENDING COLON POLYP. 4. SMALL INTERNAL/EXTERNAL HEMORRHOIDS. 5. NO FRESH OR OLD BLOOD OR ACTIVE BLEEDING ON COLON EXAM. PROCEDURE: 1. Colonoscopy to terminal ileum with hot biopsy piecemeal removal small ascending colon polyp. 2. Cold biopsy random left colon to evaluate for microscopic colitis. SURGEON: Dr. Troy Montes. ANESTHESIA: MAC. ESTIMATED BLOOD LOSS: Minimal. INDICATIONS: As noted above. Risks and benefits explained in detail, but not limited to. Consent was obtained. DESCRIPTION OF PROCEDURE AND FINDINGS: The patient was taken to the endoscopy room. MAC anesthesia was introduced. After official time-out, no disagreement in planned procedure. Digital rectal exam did not reveal any rectal masses. She did have some small internal/external hemorrhoids. Video colonoscope inserted and passed up through the tortuous sigmoid, descending, and transverse colon. With external pressure, the scope was able to be passed around the ascending colon to the cecum and up into the terminal ileum. The terminal ileum was grossly unremarkable. In the proximal ascending colon, there was a small polyp that was removed in piecemeal fashion with brief bursts of cautery and hot biopsy forceps. Overall, the prep was poor very much limiting the exam with semisolid liquidy stool throughout the colon limiting the exam for small lesions. On slow, careful withdrawal over the next 12-15 minutes, there were no signs of any large polyps, masses, or obstructing lesions. She did have some diverticulosis. Because she had been having this left-sided pain in her back, elected to go ahead and do some random cold biopsies in left colon to evaluate for microscopic colitis. Adequate hemostasis was noted. Otherwise, she had some diverticulosis. She had no ortiz macroscopic colitis. No signs of any large polyps, masses, or obstructing lesions. She did have some small internal/external hemorrhoids. The scope was withdrawn. The patient tolerated the procedure well. Findings discussed with the family out in the waiting area. Again, the patient came over the weekend. Dr. Steve had been consulted and asked that I proceed with endoscopy Friday.
--- NOTE | 2017-01-21 14:02 | PCM.DS ---
Discharge Summary Date of Admission: 01/20/17 08:08 Date of Discharge: 01/21/17 Admitting Physician: LEONILA BELCHER Primary Care Provider: LEONILA BELCHER Allergies Allergies No Known Drug Allergies Allergy (Verified 01/18/17 22:00) Hospital Summary - Hospital Course Hospital Course: Mrs. Ng had a coronary stent placed about [address] Lance but the pains she was having that lead to the cardiac cath persisted with pain in her epigastric area and after the stent was placed on aspirin and plavix. She became more weak and was having frequent black stools last week. She was admitted to [facility] last week and EGD was done by Dr. Bruno and per the patient report was healing gastric ulcers with no active bleeding. Despite request [facility] records the report was still unavailable at time of discharge. She went home and was very weak and with persistent black stools and began having left lower quadrant pains as well. She presented to [place] ED where she had heme positive stools and anemia and the bleeding persisted and anemia trended down to hgb of 7.4 and light headed and weak and with the persistent bleeding and recent stenting was transfused 2 Units prbc. She was prepped and taken for colonoscopy by Dr. Montes with no active bleeding and final report pending. She did have a small focus of diverticulitis seen on the CT and with the left lower quadrant pain was treated with flagyl and levoquin. The case was discused by phone with Dr. Lance who recommends continue plavix and we discussed holding the aspirin until the bleeding stops. it seem much improved now at time of discharge she was only given a 2 Unit transfusion but it improved the hgb from 7.4 to 11. She was started on carafate 4 times a day with her protonix. and will restart her aspirin as discussed in 4 days and will continue her plavix as done and will keep f/u with Dr. Lance. She was up in the halls and actually doing exercises in her room with no complaints the day of discharge except left sided back pain with radiculopathy around to the front that improved with position changes. - Vitals & Intake/Output Vital Signs: Vital Signs Temperature 98.3 F 01/21/17 08:10 Pulse Rate 75 01/21/17 08:10 Respiratory Rate 19 01/21/17 08:10 Blood Pressure 193/89 01/21/17 08:10 O2 Sat by Pulse Oximetry 92 L 01/21/17 08:10 Intake & Output: Intake & Output 01/19/17 01/20/17 01/21/17 01/22/17 11:59 11:59 11:59 11:59 Intake Total 2592 Output Total 200 500 Balance -200 2092 Weight 68.765 kg - Lab Result Diagrams: 01/21/17 05:15 01/21/17 05:15 Lab Results-Last 24 Hrs: Lab Results-Last 24 Hours 01/20/17 01/21/17 01/21/17 Range/Units 18:00 05:15 05:15 WBC 5.3 (4.0-10.5) K/mm3 RBC 3.55 L (4.1-5.4) M/mm3 Hgb 12.1 11.3 L (12.0-16.0) gm/dl Hct 36.0 33.2 L (35-47) % MCV 93.5 (78-100) fl MCH 31.8 (26-32) pg MCHC 34.0 (32-36) g/dl RDW 14.9 H (11.5-14.0) % Plt Count 175 (150-450) K/mm3 MPV 10.6 H (6-9.5) fl Segmented Neutrophils 84 H (36.0-66.0) % Lymphocytes (Manual) 10 L (24-44) % Monocytes (Manual) 5 (0.0-12.0) % Eosinophils (Manual) 1 (0.00-3.0) % Differential Comment ABNORMAL Platelet Estimate NORMAL (NORMAL) Polychromasia 1+ Anisocytosis 1+ Sodium 143 (136-145) mEq/L Potassium 3.9 (3.5-5.1) mEq/L Chloride 107 (98-107) mEq/L Carbon Dioxide 27.5 (21-32) mEq/L Anion Gap 12.3 (5-15) MEQ/L BUN 5 L (9-20) mg/dL Creatinine 0.83 (0.55-1.30) mg/dl Estimated GFR > 60 ML/MIN Glucose 107 (70-110) MG/DL Calcium 8.8 (8.5-10.1) mg/dL Total Bilirubin 0.70 (0.2-1.0) mg/dL AST 15 (15-37) U/L ALT 18 (12-78) U/L Alkaline Phosphatase 45 L (46-116) U/L Serum Total Protein 5.8 L (6.4-8.2) gm/dL Albumin 3.2 L (3.4-5.0) g/dL Discharge Exam General Appearance: no apparent distress, alert Neurologic Exam: alert, oriented x 3, cooperative, normal mood/affect, nml cerebellar function, sensation nml, No motor deficits Skin Exam: normal color, warm, dry Eye Exam: PERRL, EOMI, eyes nml inspection Ears, Nose, Throat Exam: normal ENT inspection, pharynx normal, moist mucous membranes Neck Exam: normal inspection, non-tender, supple, full range of motion Respiratory Exam: normal breath sounds, lungs clear, No respiratory distress Cardiovascular Exam: regular rate/rhythm, normal heart sounds Gastrointestinal/Abdomen Exam: soft, No tenderness, No mass Extremity Exam: normal inspection, normal range of motion Back Exam: normal inspection, normal range of motion, other (left L3/L4 radiculopathy), No CVA tenderness, No vertebral tenderness Pelvic Exam: deferred Rectal Exam: deferred Final Diagnosis/Problem List - Final Discharge Diagnosis/Problem (1) Diverticulitis Status: Acute (2) GI bleed Status: Acute (3) Coronary arteriosclerosis Status: Acute (4) Acute blood loss anemia Status: Acute (5) Peptic ulcer disease Status: Acute - Discharge Discharge Date: 01/21/17 Disposition: Home, Self-Care Condition: Good Prescriptions: New Aspirin [Aspirin EC] 81 mg PO DAILY #0 tablet. Ciprofloxacin HCl [Cipro] 500 mg PO BID #12 tablet Metronidazole 500 mg [Flagyl 500 MG] 500 mg PO TID #18 tablet Sucralfate 1000 mg/10 ml [Carafate SUSPENSION 1000 MG/10 ML] 1,000 mg PO ACHS #280 ml Tramadol HCl 50 mg [Ultram 50 mg] 50 mg PO Q4H PRN #12 tablet PRN Reason: Pain Continue Simvastatin [Zocor] 10 mg PO DAILY Metoprolol Succinate 50 mg [Toprol Xl 50 MG] 50 mg PO DAILY PANTOPRAZOLE 40 mg Tablet [Protonix 40MG Tablet] 40 mg PO QPM Losartan Potassium 50 mg [Cozaar 50 MG] 50 mg PO DAILY Clopidogrel Bisulfate 75 mg [PLAVIX 75 MG Tablet] 75 mg PO DAILY Discontinued Aspirin 81 gm Chew [Baby Aspirin 81 mg Chew] 81 mg PO DAILY Instructions: Gastrointestinal Bleeding Additional Instructions: Follow up with at [facility] on 01/27/17 @ 8:15 a.m. start taking aspirin again on Friday01/25/17 Follow up with: LEONILA BELCHER [Primary Care Provider] - 01/28/17 9:30 am TRISH LANCE [ACTIVE STAFF] - 01/31/17 10:30 am JOELLEN MONTES [COURTESY STAFF] - 01/27/17 8:15 am Forms: Patient Portal Information
== END 2017-01-21 09:15 | disposition home or self-care (01) | DRG 392 ==
LOC: ED 21:26 → MED SURG 01-19 00:46 → OBSVTOIN 01-20 08:08
PROVIDERS: ADMIT Family Medicine; ATTEND Family Medicine
PROC: 0DBK8ZX Excision of Ascending Colon, Via Natural or Artificial Opening Endoscopic, Diagnostic (ICD-10-PCS; principal; 2017-01-20)
PROC: 0DBG8ZX Excision of Left Large Intestine, Via Natural or Artificial Opening Endoscopic, Diagnostic (ICD-10-PCS; 2017-01-20)
DX: K57.92 Diverticulitis of intestine, part unspecified, without perforation or abscess without bleeding (principal); K92.2 Gastrointestinal hemorrhage, unspecified; I25.810 Atherosclerosis of coronary artery bypass graft(s) without angina pectoris; D62 Acute posthemorrhagic anemia; Z98.61 Coronary angioplasty status; K27.9 Peptic ulcer, site unspecified, unspecified as acute or chronic, without hemorrhage or perforation; I10 Essential (primary) hypertension; K57.90 Diverticulosis of intestine, part unspecified, without perforation or abscess without bleeding; D12.4 Benign neoplasm of descending colon; Z98.890 Other specified postprocedural states; K64.8 Other hemorrhoids; E78.00 Pure hypercholesterolemia, unspecified; Z79.82 Long term (current) use of aspirin; Z79.899 Other long term (current) drug therapy; E78.5 Hyperlipidemia, unspecified
CPT/HCPCS: 00810; 36000; 36415; 36430; 74177; 80053; 81002; 82272; 85014; 85018; 85025; 85610; 85730; 86850; 86900; 86901; 86922; 88305; 93268; 96360; 96361; 99100; 99285; G0378; J1956; J2270; J2370; J2704; P9016; A9270-GY

== ENCOUNTER 2017-05-01 06:06 | Day surgery (SDC) | payer MEDICARE, BC ==
[2017-05-01] MEDS ORDERED: DEMEROL 50 MG IV ONE (06:07)
[2017-05-01] MEDS ORDERED: Versed 2 MG/2 ML Injection IV ONE (06:07)
[2017-05-01] MEDS ORDERED: Lactated Ringers 1,000 ML IV SCH (06:30)
[2017-05-01 09:53] VITALS: BP 123/61; PULSE 59; O2SAT 98
--- NOTE | 2017-05-01 13:41 | OP ---
SURGERY DATE/TIME: 05/01/2017 0850 PREOPERATIVE DIAGNOSIS: Follow up of severe gastric ulcer disease. POSTOPERATIVE DIAGNOSES: 1) Totally resolved gastric ulcer disease. 2) Grade I/III gastroesophageal reflux disease. 3) The patient has a little bit of dysmotility at the crichopharyngeal junction. It is just a little tedious starting this procedure but there is no organic fixated defect at this location. It is muscular only. I believe it is coordination only. She probably needs to be fairly deliberate chewing and swallowing. PROCEDURE: EGD. SURGEON: Abel Bruno M.D. ANESTHESIA: IVS. DESCRIPTION OF PROCEDURE: The scope was introduced other than being a little tedious at the top, esophagus normal down to gastroesophageal junction. A small rim of esophagitis grade I. No hiatal hernia. The fundus, body and antrum satisfactory. Pylorus satisfactory. Duodenal bulb satisfactory. The second portion satisfactory. The scope withdrawn and looped upon itself. No hiatal hernia noted. The scope was withdrawn. The patient tolerated the procedure satisfactorily.
== END 2017-05-01 10:00 | disposition home or self-care (01) ==
LOC: SDC 06:06
PROVIDERS: ATTEND Surgery
PROC: 0DJ08ZZ Inspection of Upper Intestinal Tract, Via Natural or Artificial Opening Endoscopic (ICD-10-PCS; principal; 2017-05-01)
DX: K21.9 Gastro-esophageal reflux disease without esophagitis (principal); J39.2 Other diseases of pharynx; I25.810 Atherosclerosis of coronary artery bypass graft(s) without angina pectoris; E78.5 Hyperlipidemia, unspecified; I10 Essential (primary) hypertension; I34.0 Nonrheumatic mitral (valve) insufficiency; Z79.899 Other long term (current) drug therapy
CPT/HCPCS: J2175; J2250

== ENCOUNTER 2020-07-14 13:00 | Inpatient (IN) | payer MEDICARE, BC ==
[2020-07-14] MEDS ORDERED: Hydromorphone 1 mg/ml Injection IV ONE (13:09)
[2020-07-14] MEDS ORDERED: Zofran 4 MG/2 ML VIAL IV ONE (13:09)
[2020-07-14] MEDS ORDERED: Sodium Chloride 0.9% 1000 ML 1,000 ML IV STA (13:09)
[2020-07-14] MEDS ORDERED: Zofran 4 MG/2 ML VIAL ONE (13:17)
[2020-07-14] MEDS ORDERED: Hydromorphone 1 mg/ml Injection ONE ×2 (13:18→19:47)
[2020-07-14] MEDS ORDERED: Sodium Chloride 0.9% 1000 ML 1,000 ML ONE (13:19)
[2020-07-14 14:08] LABS: INR 1.16 (0.8-3.0); PROTIME 13.1 SECONDS (9.95-12.35)
[2020-07-14 14:10] LABS: Absolute Neutrophil Ct (ANC) 3.52 (1.4-6.9); BASOPHIL % 0.2 % (0.0-0.4); Basophil (Absolute #) 0.01 (0-0.4); Eosinophil (Absolute #) 0 (0-0.5); Hematocrit 42.9 % (35-47); Hemoglobin 14.2 gm/dl (12.0-16.0); Lymphocyte (Absolute #) 0.66 (1.0-4.6); Lymphocytes % 14.6 % (24.0-44.0); Mean Cell Volume 94.3 fl (78-100); Mean Corpuscular Hemoglobin 31.2 pg (26-32); Mean Corpuscular Hgb Concent. 33.1 g/dl (32-36); Mean Platelet Volume 11.2 fl (7.5-11.0); Monocyte (Absolute #) 0.32 (0.0-1.3); Monocytes % 7.1 % (0.0-12.0); Neutrophil % 78.1 % (36.0-66.0); Platelet Count 165 K/mm3 (150-450); Red Blood Count 4.55 M/mm3 (4.1-5.4); White Blood Count 4.5 K/mm3 (4.0-10.5)
[2020-07-14 14:17] LABS: ALBUMIN 4.1 g/dL (3.5-5.0); ALKALINE PHOSPHATASE 78 U/L (38-126); AMYLASE 109 U/L (30-110); ANION GAP 9.9 MEQ/L (5-15); BLOOD UREA NITROGEN 17 mg/dL (7-17); CHLORIDE 97 mmol/L (98-107); Calcium 8.9 mg/dL (8.4-10.2); Carbon Dioxide 27 mmol/L (22-30); Creatinine 1 0.82 mg/dL (0.52-1.04); EST GLOMERULAR FILTRATION RATE > 60.0 ML/MIN; Glucose 143 mg/dL (74-106); LDH-LACTATE DEHYDROGENASE 208 U/L (120-246); LIPASE 210 U/L (23-300); SGOT/AST 35 U/L (14-36); SGPT/ALT 23 U/L (0-35); SODIUM 130 mmol/L (137-145); Total Protein 6.8 g/dL (6.3-8.2)
--- NOTE | 2020-07-14 14:20 | XRAY ---
Indication: Upper abdomen pain. Comparison: April 11, 2015. Portable apical lordotic chest remains hyperinflated and clear. Heart is not enlarged for AP portable technique again with CABG surgery. Stable small focal eventration right hemidiaphragm. Bony thorax intact again with osteopenia. Impression: Nonacute hyperinflated chest with chronic features.
--- NOTE | 2020-07-14 15:35 | XRAY ---
Indication: Abdomen pain. Multiple contiguous axial images obtained through the abdomen and pelvis using 80 cc Isovue 370 contrast only. Comparison: January 19, 2017. Lung bases demonstrates new bilateral patchy peripheral airspace disease left greater than right without consolidation/effusion. Heart is not enlarged. New small hiatal hernia. Noncontrasted stomach unremarkable. Distal ileum is now air distended up to 6.5 cm with fluid leveling unchanged on delayed imaging. More distal bowel loops including colon appear decompressed. Findings concerning for distal small bowel obstruction. Stable sigmoid diverticulosis. No free fluid/air. Stable distended gallbladder with 2 cm gallstone, 5 mm hepatic cyst/hemangioma, calcified splenic granulomas, bilateral renal parapelvic cysts, and hysterectomy. Remaining liver, pancreas, spleen, adrenal glands and kidneys, ureters, and bladder are unremarkable. Stable mild aortoiliac calcifications. No AAA or pathologic retroperitoneal lymphadenopathy. Osseous structures intact again with mild generative spondylosis throughout the spine and very minimal grade 1 L4 spondylolisthesis. Impression: 1. New finding for distal small bowel obstruction as detailed. 2. New bibasilar airspace disease without consolidation/effusion. 3. New small hiatal hernia. 4. Again distended gallbladder with 2 cm gallstone. 5. Stable tiny hepatic cyst/hemangioma, bilateral renal cysts, and chronic bony findings.
--- NOTE | 2020-07-14 16:02 | ERPHSYRPT ---
- History of Present Illness Time Seen by Provider: 07/14/20 13:35 Historian: patient Patient Subjective Stated Complaint: pt c/o that her lower abdomen is in constant pain and feels like someone is squeezing it Triage Nursing Assessment: Pt brought to the ER by her , bradycardic, lethargic, rates lower abdominal pain as 9/10, pain to abdomen with palpatation, skin n/w/d, last bm was yesterday, last intake was toast this AM Physician History: Is an 80-year-old female who presents with a complaint of abdominal pain for a couple of days decreased p.o. intake some nausea little vomiting she rates the lower abdominal pain 9 of 10. She also was noted to have a slow heart rate in the lethargic and weak. Timing/Duration: day(s) (2) Activities at Onset: none Quality: cramping, stabbing Abdominal Pain Onset Location: RLQ, LLQ, suprapubic Pain Radiation: no radiation Severity of Pain-Max: moderate Severity of Pain-Current: moderate Modifying Factors: Improves With: movement Associated Symptoms: fatigue, loss of appetite, nausea, vomiting Previous symptoms: no prior history Allergies/Adverse Reactions: No Known Drug Allergies Allergy (Verified 07/14/20 13:14) Home Medications: Metoprolol Succinate 50 mg [Toprol Xl 50 MG] 50 mg PO BID 01/02/14 [History] Simvastatin [Zocor] 10 mg PO DAILY 01/02/14 [History] Clopidogrel Bisulfate 75 mg [PLAVIX 75 MG Tablet] 75 mg PO DAILY 01/18/17 [History] Losartan Potassium 50 mg [Cozaar 50 MG] 25 mg PO DAILY 01/18/17 [History] PANTOPRAZOLE 40 mg Tablet [Protonix 40MG Tablet] 40 mg PO QPM 01/18/17 [History] Trazodone HCl 50 mg [Desyrel 50 mg] 50 mg PO DAILY 04/25/17 [History] Hx Tetanus, Diphtheria Vaccination/Date Given: Yes Hx Influenza Vaccination/Date Given: No (2013) Hx Pneumococcal Vaccination/Date Given: No (december 2013) Travel Risk - International Travel Have you traveled outside of the country in past 3 weeks: No - Coronavirus Screening Are you exhibiting any of the following symptoms?: Yes Symptoms: Headaches/Body Aches/Fatigue Close contact with a COVID-19 positive Pt in past 14-21 Days: No - Review of Systems Constitutional: No Fever, No Chills Eyes: No Symptoms Ears, Nose, & Throat: No Symptoms Respiratory: No Cough, No Dyspnea Cardiac: No Chest Pain, No Edema, No Syncope Abdominal/Gastrointestinal: Abdominal Pain, Nausea, Vomiting, Appetite Changes, No Diarrhea Genitourinary Symptoms: No Dysuria Musculoskeletal: No Back Pain, No Neck Pain Skin: No Rash Neurological: No Dizziness, No Focal Weakness, No Sensory Changes Psychological: No Symptoms Endocrine: No Symptoms All Other Systems: Reviewed and Negative - Past Medical History Pertinent Past Medical History: Yes Neurological History: No Pertinent History ENT History: No Pertinent History Cardiac History: Myocardial Infarction (IA) Respiratory History: No Pertinent History Endocrine Medical History: No Pertinent History Musculoskeletal History: No Pertinent History GI Medical History: Colitis, Ulcer History: No Pertinent History Psycho-Social History: No Pertinent History Female Reproductive Disorders: No Pertinent History Other Medical History: Open heart surgery 5 years ago. - Past Surgical History Past Surgical History: Yes Neuro Surgical History: No Pertinent History Cardiac: CABG, Cardiac Catheterization, Cardiac Stent Respiratory: No Pertinent History Gastrointestinal: No Pertinent History Genitourinary: No Pertinent History Musculoskeletal: No Pertinent History Female Surgical History: Hysterectomy Other Surgical History: childbirth x two,open heart december 25 2013 double bipass and carotid artery. cardiac stent [address] padilla - Social History Smoking Status: Never smoker Exposure to second hand smoke: No Drug Use: none Patient Lives Alone: No - Nursing Vital Signs Nursing Vital Signs: Initial Vital Signs Pulse Rate 47 L 07/14/20 13:03 Respiratory Rate 18 07/14/20 13:03 Blood Pressure 148/79 07/14/20 13:03 O2 Sat by Pulse Oximetry 100 07/14/20 13:03 Pain Scale Pain Intensity 9 - Physical Exam General Appearance: moderate distress, alert Eye Exam: PERRL/EOMI, eyes nml inspection Ears, Nose, Throat Exam: normal ENT inspection, pharynx normal, moist mucous membranes Neck Exam: normal inspection, non-tender, supple, full range of motion Respiratory Exam: normal breath sounds, lungs clear, No respiratory distress Cardiovascular Exam: regular rate/rhythm, normal heart sounds Gastrointestinal/Abdomen Exam: tenderness, rebound, No mass Pelvic Exam: not done Rectal Exam: deferred Back Exam: normal inspection, normal range of motion, No CVA tenderness, No vertebral tenderness Extremity Exam: normal inspection, normal range of motion, pelvis stable Neurologic Exam: alert, oriented x 3, cooperative, normal mood/affect, nml cerebellar function, sensation nml, No motor deficits Skin Exam: normal color, warm, dry SpO2: 98 - Course Nursing assessment & vital signs reviewed: Yes EKG Interpreted by Me: RATE ([id number]), Sinus Francisco, NORMAL AXIS, Right Bundle Branch Block - CT Exams Abdomen/Pelvis CT Interpretation: Other (The scan shows findings of a small bowel obstruction and new bibasilar airspace disease without consolidation or effusion a distended gallbladder with 2 cm stone) Ordered Tests: Active Orders 24 hr Category Date Time Status EKG-ER Only STAT Care 07/14/20 13:09 Active IV Insertion STAT Care 07/14/20 13:09 Active ABDOMEN AND PELVIS W CONTRAST [CT] Stat Exams 07/14/20 14:51 Completed CHEST 1 VIEW (PORTABLE) Stat Exams 07/14/20 13:09 Completed AMYLASE Stat Lab 07/14/20 13:45 Completed BLOOD CULTURE Stat Lab 07/14/20 14:35 Received CBC W DIFF Stat Lab 07/14/20 14:00 Completed CMP Stat Lab 07/14/20 13:45 Completed D-DIMER QUANTITATIVE Stat Lab 07/14/20 13:45 Completed LDH-LACTATE DEHYDROGENASE Stat Lab 07/14/20 13:45 Completed LIPASE Stat Lab 07/14/20 13:45 Completed Lactic Acid Stat Lab 07/14/20 13:09 Completed Lactic Acid Stat Lab 07/14/20 15:27 Received PROTIME WITH INR Stat Lab 07/14/20 13:45 Completed TROPONIN Q3H Lab 07/14/20 13:45 Completed TROPONIN Q3H Lab 07/14/20 16:15 Ordered TROPONIN Q3H Lab 07/14/20 19:15 Ordered TROPONIN Q3H Lab 07/14/20 22:15 Ordered TROPONIN Q3H Lab 07/15/20 01:15 Ordered UA W/RFX UR CULTURE Stat Lab 07/14/20 13:09 Ordered Medication Summary Discontinued Medications Generic Name Dose Route Start Last Admin Trade Name Freq PRN Reason Stop Dose Admin Hydromorphone HCl 0.5 mg 07/14/20 13:09 07/14/20 13:22 Hydromorphone 1 Mg/Ml Injection IV 07/14/20 13:10 0.5 mg STAT ONE Administration Hydromorphone HCl Confirm 07/14/20 13:18 Hydromorphone 1 Mg/Ml Injection Administered 07/14/20 13:19 Dose 1 mg .ROUTE .STK-MED ONE Sodium Chloride 1,000 mls @ 999 mls/hr 07/14/20 13:09 07/14/20 14:39 Sodium Chloride 0.9% 1000 Ml IV 07/14/20 14:09 Infused .Q1H1M STA Infusion Sodium Chloride Confirm 07/14/20 13:19 Sodium Chloride 0.9% 1000 Ml Administered 07/14/20 13:20 Dose 1,000 mls @ ud .ROUTE .STK-MED ONE Ondansetron HCl 4 mg 07/14/20 13:09 07/14/20 13:21 Zofran 4 Mg/2 Ml Vial IV 07/14/20 13:10 4 mg STAT ONE Administration Ondansetron HCl Confirm 07/14/20 13:17 Zofran 4 Mg/2 Ml Vial Administered 07/14/20 13:18 Dose 4 mg .ROUTE .STK-MED ONE Lab/Rad Data: Laboratory Result Diagrams 07/14/20 14:00 07/14/20 13:45 Laboratory Results 07/14/20 07/14/20 07/14/20 Range/Units 14:00 13:45 13:45 WBC 4.5 (4.0-10.5) K/mm3 RBC 4.55 (4.1-5.4) M/mm3 Hgb 14.2 (12.0-16.0) gm/dl Hct 42.9 (35-47) % MCV 94.3 (78-100) fl MCH 31.2 (26-32) pg MCHC 33.1 (32-36) g/dl RDW 12.0 (11.5-14.0) % Plt Count 165 (150-450) K/mm3 MPV 11.2 H (7.5-11.0) fl Gran % 78.1 H (36.0-66.0) % Eos # (Auto) 0 (0-0.5) Absolute Lymphs (auto) 0.66 L (1.0-4.6) Absolute Monos (auto) 0.32 (0.0-1.3) Lymphocytes % 14.6 L (24.0-44.0) % Monocytes % 7.1 (0.0-12.0) % Eosinophils % 0.0 (0.00-5.0) % Basophils % 0.2 (0.0-0.4) % Absolute Granulocytes 3.52 (1.4-6.9) Basophils # 0.01 (0-0.4) PT 13.1 H (9.95-12.35) SECONDS INR 1.16 (0.8-3.0) D-Dimer 468 (215-500) ng/mL Sodium (137-145) mmol/L Potassium (3.5-5.1) mmol/L Chloride (98-107) mmol/L Carbon Dioxide (22-30) mmol/L Anion Gap (5-15) MEQ/L BUN (7-17) mg/dL Creatinine (0.52-1.04) mg/dL Estimated GFR ML/MIN Glucose (74-106) mg/dL Lactic Acid (0.4-2.0) Calcium (8.4-10.2) mg/dL Total Bilirubin (0.2-1.3) mg/dL AST (14-36) U/L ALT (0-35) U/L Alkaline Phosphatase (38-126) U/L Lactate Dehydrogenase (120-246) U/L Troponin I < 0.012 (0.000-0.034) ng/mL Serum Total Protein (6.3-8.2) g/dL Albumin (3.5-5.0) g/dL Amylase (30-110) U/L Lipase (23-300) U/L 07/14/20 07/14/20 Range/Units 13:45 13:09 WBC (4.0-10.5) K/mm3 RBC (4.1-5.4) M/mm3 Hgb (12.0-16.0) gm/dl Hct (35-47) % MCV (78-100) fl MCH (26-32) pg MCHC (32-36) g/dl RDW (11.5-14.0) % Plt Count (150-450) K/mm3 MPV (7.5-11.0) fl Gran % (36.0-66.0) % Eos # (Auto) (0-0.5) Absolute Lymphs (auto) (1.0-4.6) Absolute Monos (auto) (0.0-1.3) Lymphocytes % (24.0-44.0) % Monocytes % (0.0-12.0) % Eosinophils % (0.00-5.0) % Basophils % (0.0-0.4) % Absolute Granulocytes (1.4-6.9) Basophils # (0-0.4) PT (9.95-12.35) SECONDS INR (0.8-3.0) D-Dimer (215-500) ng/mL Sodium 130 L (137-145) mmol/L Potassium 4.0 (3.5-5.1) mmol/L Chloride 97 L (98-107) mmol/L Carbon Dioxide 27 (22-30) mmol/L Anion Gap 9.9 (5-15) MEQ/L BUN 17 (7-17) mg/dL Creatinine 0.82 (0.52-1.04) mg/dL Estimated GFR > 60.0 ML/MIN Glucose 143 H (74-106) mg/dL Lactic Acid 2.3 H (0.4-2.0) Calcium 8.9 (8.4-10.2) mg/dL Total Bilirubin 0.50 (0.2-1.3) mg/dL AST 35 (14-36) U/L ALT 23 (0-35) U/L Alkaline Phosphatase 78 (38-126) U/L Lactate Dehydrogenase 208 (120-246) U/L Troponin I (0.000-0.034) ng/mL Serum Total Protein 6.8 (6.3-8.2) g/dL Albumin 4.1 (3.5-5.0) g/dL Amylase 109 (30-110) U/L Lipase 210 (23-300) U/L - Progress Progress: unchanged Discussed with : Marylin Will see patient in: hospital (observation) - Departure Departure Disposition: Observation Clinical Impression: Bowel obstruction Condition: Fair Critical Care Time: No Referrals: KYLER BARROS MD [Primary Care Provider] - Instructions: Acute Abdomen (Belly Pain), Adult (DC)
[2020-07-14] MEDS ORDERED: ZOFRAN ODT 4 MG PO PRN (16:03)
[2020-07-14] MEDS ORDERED: Hydromorphone 1 mg/ml Injection IV PRN (16:03)
[2020-07-14] MEDS ORDERED: Sodium Chloride 0.9% 1000 ML 1,000 ML IV SCH (16:15)
--- NOTE | 2020-07-14 17:01 | XRAY ---
Indication: NG tube placement. Comparison: Taken earlier in the day. Portable chest demonstrates new NG tube traversing the chest with tip in the stomach. Lungs underinflated accentuating cardiopulmonary structures. No new cardiopulmonary abnormalities. Contrast in system from CT performed earlier in the day.
[2020-07-14] MEDS ORDERED: ZOFRAN ODT 4 MG ONE (19:47)
[2020-07-14] MEDS ORDERED: Zofran 4 MG/2 ML VIAL IV PRN (20:12)
[2020-07-14] MEDS: Sodium Chloride 0.9% W/ 20 mEq KCl/LITER 1,000 ML IV SCH (20:27)
[2020-07-14] MEDS: DESYREL 50 MG PO SCH (22:36)
[2020-07-14] MEDS: Toprol Xl 50 MG PO SCH (22:36)
[2020-07-15] MEDS ORDERED: REMDESIVIR 200 MG in Sodium Chloride 0.9% 250 ML 250 ML IV ONE (03:56)
[2020-07-15] MEDS ORDERED: Decadron 4 MG INJ ONE (03:57)
[2020-07-15] MEDS ORDERED: REMDESIVIR IV ONE (03:58)
[2020-07-15] MEDS ORDERED: Sodium Chloride 0.9% 250 ML 250 ML IV ONE (03:58)
[2020-07-15] MEDS: Hydromorphone 1 mg/ml Injection IV PRN ×4 (04:07→22:12)
[2020-07-15] MEDS: Decadron 4 MG INJ IV SCH ×2 (04:07→22:10)
[2020-07-15 06:14] LABS: Hematocrit 42.1 % (35-47); Hemoglobin 13.8 gm/dl (12.0-16.0); Mean Cell Volume 95.7 fl (78-100); Mean Corpuscular Hemoglobin 31.4 pg (26-32); Mean Corpuscular Hgb Concent. 32.8 g/dl (32-36); Mean Platelet Volume 10.3 fl (7.5-11.0); Platelet Count 153 K/mm3 (150-450); Red Cell Distribution Width 12.2 % (11.5-14.0); White Blood Count 4.2 K/mm3 (4.0-10.5)
[2020-07-15 06:32] LABS: ALBUMIN 3.6 g/dL (3.5-5.0); ALKALINE PHOSPHATASE 61 U/L (38-126); AMYLASE 81 U/L (30-110); ANION GAP 8.5 MEQ/L (5-15); BLOOD UREA NITROGEN 11 mg/dL (7-17); CHLORIDE 101 mmol/L (98-107); Calcium 8.5 mg/dL (8.4-10.2); Carbon Dioxide 28 mmol/L (22-30); Creatinine 1 0.85 mg/dL (0.52-1.04); EST GLOMERULAR FILTRATION RATE > 60.0 ML/MIN; Glucose 108 mg/dL (74-106); LIPASE 126 U/L (23-300); SGOT/AST 32 U/L (14-36); SGPT/ALT 19 U/L (0-35); SODIUM 133 mmol/L (137-145); Total Protein 6.2 g/dL (6.3-8.2)
[2020-07-15 06:39] LABS: Potassium 5.2 mmol/L (3.5-5.1)
[2020-07-15] MEDS: Toprol Xl 50 MG PO SCH ×2 (08:01→22:10)
[2020-07-15] MEDS: Cozaar 50 MG PO SCH (08:54)
[2020-07-15 09:29] LABS: Appearance CLEAR (CLEAR); Bilirubin NEGATIVE (NEGATIVE); Blood NEGATIVE Ery/ul (0-5); Glucose NEGATIVE (NEGATIVE); Ketones SMALL (NEGATIVE); Leukocyte Esterase NEGATIVE (NEGATIVE); Mucus SLIGHT /HPF (NEGATIVE); Nitrite NEGATIVE (NEGATIVE); Protein,Urine Dip NEGATIVE (Negative); Urobilinogen NEGATIVE mg/dL (0-1)
[2020-07-15] MEDS ORDERED: ENOXAPARIN SODIUM SQ SCH (10:00)
[2020-07-15] MEDS: Zocor 10MG PO SCH (10:09)
[2020-07-15] MEDS: Protonix 40MG Tablet PO SCH (10:09)
[2020-07-15] MEDS: Sodium Chloride 0.9% W/ 20 mEq KCl/LITER 1,000 ML IV SCH (10:21)
[2020-07-15] MEDS: ECOTRIN 81 MG PO SCH (10:54)
[2020-07-15] MEDS: PLAVIX 75 MG Tablet PO SCH (10:54)
[2020-07-15] MEDS: REMDESIVIR 100 MG in Sodium Chloride 0.9% 100 ML IVPB 100 ML IV SCH (22:00)
[2020-07-15] MEDS: DESYREL 50 MG PO SCH (22:10)
[2020-07-16 06:53] LABS: Absolute Neutrophil Ct (ANC) 5.01 (1.4-6.9); BASOPHIL % 0.2 % (0.0-0.4); Basophil (Absolute #) 0.01 (0-0.4); Eosinophil (Absolute #) 0 (0-0.5); Hematocrit 43.7 % (35-47); Hemoglobin 14.4 gm/dl (12.0-16.0); Lymphocyte (Absolute #) 0.52 (1.0-4.6); Lymphocytes % 8.8 % (24.0-44.0); Monocyte (Absolute #) 0.34 (0.0-1.3); Monocytes % 5.8 % (0.0-12.0); Neutrophil % 85.2 % (36.0-66.0); Platelet Count 166 K/mm3 (150-450); Red Blood Count 4.65 M/mm3 (4.1-5.4); Red Cell Distribution Width 12.2 % (11.5-14.0); White Blood Count 5.9 K/mm3 (4.0-10.5)
[2020-07-16 07:22] LABS: INR 1.17 (0.8-3.0); PROTIME 13.2 SECONDS (9.95-12.35)
[2020-07-16 07:28] LABS: ALBUMIN 3.6 g/dL (3.5-5.0); ALKALINE PHOSPHATASE 58 U/L (38-126); ANION GAP 7.8 MEQ/L (5-15); BLOOD UREA NITROGEN 12 mg/dL (7-17); CHLORIDE 99 mmol/L (98-107); Calcium 8.6 mg/dL (8.4-10.2); Carbon Dioxide 27 mmol/L (22-30); Creatinine 1 0.76 mg/dL (0.52-1.04); EST GLOMERULAR FILTRATION RATE > 60.0 ML/MIN; Glucose 128 mg/dL (74-106); Potassium 4.6 mmol/L (3.5-5.1); SGOT/AST 30 U/L (14-36); SGPT/ALT 18 U/L (0-35); SODIUM 130 mmol/L (137-145); Total Protein 6.2 g/dL (6.3-8.2)
[2020-07-16 07:46] LABS: INR 1.24 (0.8-3.0)
[2020-07-16] MEDS: Hydromorphone 1 mg/ml Injection IV PRN ×2 (09:14→20:35)
[2020-07-16] MEDS: ECOTRIN 81 MG PO SCH (09:21)
[2020-07-16] MEDS: Cozaar 50 MG PO SCH (09:21)
[2020-07-16] MEDS: Zocor 10MG PO SCH (09:21)
[2020-07-16] MEDS: PLAVIX 75 MG Tablet PO SCH (09:21)
[2020-07-16] MEDS: Protonix 40MG Tablet PO SCH (09:22)
[2020-07-16] MEDS: Decadron 4 MG INJ IV SCH ×2 (09:22→20:36)
[2020-07-16] MEDS: Toprol Xl 50 MG PO SCH ×2 (09:23→22:00)
[2020-07-16 09:46] LABS: Slide Review 1 YES
[2020-07-16] MEDS ORDERED: Phenergan 25 MG INJ IV PRN (12:51)
[2020-07-16] MEDS: Sodium Chloride 0.9% W/ 20 mEq KCl/LITER 1,000 ML IV SCH (15:18)
[2020-07-16] MEDS: REMDESIVIR 100 MG in Sodium Chloride 0.9% 100 ML IVPB 100 ML IV SCH (20:30)
[2020-07-16] MEDS: DESYREL 50 MG PO SCH (20:36)
[2020-07-16] MEDS ORDERED: Ativan 1 MG ONE (21:26)
[2020-07-17] MEDS: Hydromorphone 1 mg/ml Injection IV PRN ×3 (03:46→15:05)
[2020-07-17 04:57] LABS: Absolute Neutrophil Ct (ANC) 8.35 (1.4-6.9); BASOPHIL % 0.1 % (0.0-0.4); Basophil (Absolute #) 0.01 (0-0.4); Eosinophil (Absolute #) 0 (0-0.5); Hematocrit 42.6 % (35-47); Hemoglobin 14.3 gm/dl (12.0-16.0); Lymphocyte (Absolute #) 0.61 (1.0-4.6); Lymphocytes % 6.4 % (24.0-44.0); Mean Cell Volume 93.4 fl (78-100); Mean Corpuscular Hemoglobin 31.4 pg (26-32); Mean Corpuscular Hgb Concent. 33.6 g/dl (32-36); Mean Platelet Volume 10.8 fl (7.5-11.0); Monocyte (Absolute #) 0.63 (0.0-1.3); Monocytes % 6.6 % (0.0-12.0); Neutrophil % 86.9 % (36.0-66.0); Platelet Count 159 K/mm3 (150-450); Red Blood Count 4.56 M/mm3 (4.1-5.4); Red Cell Distribution Width 12.3 % (11.5-14.0); White Blood Count 9.6 K/mm3 (4.0-10.5)
[2020-07-17 05:08] LABS: ALBUMIN 3.4 g/dL (3.5-5.0); ALKALINE PHOSPHATASE 55 U/L (38-126); ANION GAP 8.3 MEQ/L (5-15); BLOOD UREA NITROGEN 13 mg/dL (7-17); CHLORIDE 96 mmol/L (98-107); Calcium 8.4 mg/dL (8.4-10.2); Carbon Dioxide 28 mmol/L (22-30); Creatinine 1 0.68 mg/dL (0.52-1.04); EST GLOMERULAR FILTRATION RATE > 60.0 ML/MIN; Glucose 139 mg/dL (74-106); Potassium 4.5 mmol/L (3.5-5.1); SGOT/AST 27 U/L (14-36); SGPT/ALT 17 U/L (0-35); SODIUM 128 mmol/L (137-145)
[2020-07-17] MEDS ORDERED: Levofloxacin 500MG/100ML D5W 500 MG/100 ML BAG IV STA (06:46)
--- NOTE | 2020-07-17 09:16 | XRAY ---
Indication: Abdomen pain. Multiple contiguous axial images obtained through the abdomen and pelvis without contrast as ordered. Comparison: July 14, 2020. Lung bases again demonstrates bilateral patchy peripheral airspace disease without consolidation/effusion. Heart is not enlarged. Noncontrasted stomach unremarkable. Cecum again is abnormally air distended up to 7.3 cm with fluid leveling and paucity of distal bowel gas favoring obstruction. Stable sigmoid diverticulosis. Gallbladder remains moderately distended with 2 cm gallstone. New small perisplenic, inferior perihepatic, right colic gutter, and pelvic free fluid. No walled off fluid collection or free air. Stable calcified splenic granulomas, bilateral renal parapelvic cysts, mild aortoiliac calcifications, and hysterectomy. Remaining liver, pancreas, spleen, adrenal glands, kidneys, ureters, and bladder are unremarkable for noncontrast exam. Impression: 1. Again CT features favoring cecal obstruction. Rule out volvulus. 2. Again abnormal distended gallbladder with gallstone. 3. New small abdomen/pelvic free fluid either reactive to small bowel obstruction or gallbladder disease. 4. Stable bibasilar airspace disease. 5. Again incidental bilateral renal cysts and sigmoid diverticulosis. Comment: Preliminary interpretation was made by C. No critical discrepancy.
--- NOTE | 2020-07-17 09:36 | HP ---
CHIEF COMPLAINT: Abdominal pain, history of COVID. HISTORY OF PRESENT ILLNESS: The patient is an 80 year old white female who presented to the emergency room [place] afternoon with low abdominal pain which was constant. It felt like someone was squeezing it. She is kind of sweaty, bradycardic, pain was severe 9 over 10. She was nauseated. The pain has been going on for about eight hours before she presented. She had a bowel movement the day before coming to the emergency room. She had COVID probably for about seven days and has been recovering from that. She is having no bad cough, no shortness of breath, no change in bowel movements. The abdominal pain started today. HOME MEDICATIONS: Metoprolol 50 b.i.d., Zocor 10 q.d., Plavix 75 q.d., losartan 50 q.d., Protonix 40 q.d., trazodone 50 q.d. ALLERGIES: NKDA. CORONAVIRUS RISK: The patient does have COVID and tested positive about seven days ago. The person has COVID that she lives with. PAST MEDICAL HISTORY: Childbirth x2. PAST SURGICAL HISTORY: Hysterectomy. Bypass in 2013. Coronary artery surgically bypassed. Cardiac stents three weeks ago with Dr. Lance. REVIEW OF SYSTEMS: CONSTITUTIONAL: No fever. No chills. HEENT: No symptoms. Slightly hard of hearing. ABDOMEN: As above. Usually has no abdominal problems. No radiation of pain. : No dysuria. MUSCULOSKELETAL: No back pain. No muscle problems known. PSYCHIATRIC: No symptoms. NEUROLOGIC: The patient's son stated that she had some mild dementia and will need to keep him up to date on progress due to memory loss. Her is hard of hearing, he said. CARDIAC: The patient had a myocardial infarction apparently it has been numerous years ago. She had stents and then a bypass greater than five years ago. She is on aspirin, Plavix and statin drugs. GI: History of colitis and ulcers in the past. SOCIAL HISTORY: Nonsmoker. PHYSICAL EXAMINATION: The patient is a small, pleasant, white female. VITAL SIGNS: Pulse 47, respirations 18, blood pressure 148/79. O2 saturation 100. HEENT: Pupils equal and reactive to light. No jaundice. NECK: Supple without adenopathy. CHEST: Clear. CVS: Regular rate. Heart rate is slow. ABDOMEN: Tender all over the lower abdomen with some rebound. No masses. EXTREMITIES: Good pulses. Good color. IMPRESSION: 1) Small bowel obstruction, resolving. The patient has low abdominal pain. On CT scan there are signs of small bowel obstruction. She has some bradycardia from beta tello. She has history of recent cardiac stent. She was treated in the emergency room with some Dilaudid which did seem to help. She was made NPO. NG tube was placed. She will be treated with IV fluids and observed. Surgical consultation if she gets worse. 2) Coronary artery disease, stable. 3) COVID, stable. ADDENDUM: The next morning the patient said she has no pain, no headache. There was hardly anything. NG tube was replaced and she is being placed on clear liquids. She hopefully will be able to go home tomorrow. PROGNOSIS: Good.
[2020-07-17] MEDS ORDERED: Lactated Ringers 1,000 ML IV SCH (10:00)
[2020-07-17] MEDS: Toprol Xl 50 MG PO SCH (10:12)
[2020-07-17] MEDS: Decadron 4 MG INJ IV SCH (10:13)
[2020-07-17] MEDS: Cozaar 50 MG PO SCH (10:13)
[2020-07-17] MEDS: Zocor 10MG PO SCH (10:13)
[2020-07-17] MEDS: Protonix 40MG Tablet PO SCH (10:30)
--- NOTE | 2020-07-17 11:39 | XRAY ---
Indication: Abdomen pain. Rule out cecal volvulus. Preliminary photo offset printer abdomen demonstrates abnormal air distended cecum up to 12 cm. There is paucity of distal colonic bowel gas favoring obstruction. Solid organs unremarkable. Osseous structures intact with mild osteopenia. Following insertion of a rectal catheter, single contrast colon exam performed. Approximately 1000 cc diluted Gastrografin infused using fluoroscopic and gravity control. Multiple digital spot and overhead radiographs obtained. There is complete opacification and distention of the entire colon. 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 Incidental scattered descending and sigmoid diverticulosis. No other focal stricture, filling defect, or inflammatory changes. Post evacuatory overhead radiograph demonstrates stable abnormal air/contrast distended cecum. Remaining colon is decompressed with near complete emptying of contrast. No abnormal extravasation/leakage of contrast to suggest perforation. Impression: Single contrast colon exam demonstrates cecal volvulus as detailed. Approximately 1.2 minute fluoroscopy used.
[2020-07-17] MEDS ORDERED: Hydromorphone 1 mg/ml Injection IV ONE (17:30)
[2020-07-17 17:31] VITALS: BP 145/65; PULSE 77; O2SAT 96
== END 2020-07-17 19:00 | disposition home or self-care (01) | DRG 388 ==
LOC: ED 13:00 → MED SURG 17:59 → OBSVTOIN 07-15 12:51
PROVIDERS: ADMIT Family Medicine; ATTEND Family Medicine
DX: K56.609 Unspecified intestinal obstruction, unspecified as to partial versus complete obstruction (principal); U07.1 COVID-19; Z79.899 Other long term (current) drug therapy; Z79.01 Long term (current) use of anticoagulants; I25.10 Atherosclerotic heart disease of native coronary artery without angina pectoris; R11.2 Nausea with vomiting, unspecified
CPT/HCPCS: 36000; 36415; 71045; 74176; 74177; 74270; 80053; 81001; 82150; 82947; 83605; 83615; 83690; 84484; 85025; 85027; 85379; 85610; 87040; 93005; 93268; 94762; 96360; 96374; 96375; 99285; G0378; U0003; J1100; J1170; J1650; J1956; J2405; Q0162; A9270-GY

== ENCOUNTER 2020-07-24 06:34 | Emergency (ER) | payer MEDICARE, BC ==
--- NOTE | 2020-07-24 07:30 | ERPHSYRPT ---
- History of Present Illness Time Seen by Provider: 07/24/20 07:15 Source: patient Exam Limitations: no limitations Patient Subjective Stated Complaint: " I had 6 inches of my intestines taken out 2 days ago, and just got released from [place] yesterday. I haven't been able to urinate and it hurts really bad. " Triage Nursing Assessment: . Physician History: Patient is a 80-year-old female presents to our emergency department with complaints of urinary retention. Patient states she had a partial bowel resection 2 days ago. Patient was discharged from [facility] yesterday. Patient last urinated yesterday evening. Patient feels her bladder is full. No fever. No nausea or vomiting. No diaphoresis. No chest pain or shortness of breath. No back pain. No saddle anesthesia. No trauma symptoms are mild to moderate in intensity. No specific worsening or improving factors. Patient voices no other complaints or concerns this time. Timing/Duration: yesterday Severity: moderate Modifying Factors: Improves With: nothing Associated Symptoms: denies symptoms Allergies/Adverse Reactions: No Known Drug Allergies Allergy (Verified 07/24/20 07:44) Home Medications: Metoprolol Succinate 50 mg [Toprol Xl 50 MG] 50 mg PO BID 01/02/14 [History] Losartan Potassium 50 mg [Cozaar 50 MG] 25 mg PO DAILY 01/18/17 [History] Apixaban [Eliquis] 5 mg PO BID 07/24/20 [History] Atorvastatin Calcium 10 mg PO HS 07/24/20 [History] Diltiazem HCl [Diltiazem 24Hr ER] 1 cap PO DAILY 07/24/20 [History] Gabapentin 100 mg PO BID 07/24/20 [History] Ropinirole HCl 1 mg PO TID 07/24/20 [History] Hx Tetanus, Diphtheria Vaccination/Date Given: Yes Hx Influenza Vaccination/Date Given: Yes Hx Pneumococcal Vaccination/Date Given: Yes Immunizations Up to Date: Yes Travel Risk - International Travel Have you traveled outside of the country in past 3 weeks: No - Coronavirus Screening Are you exhibiting any of the following symptoms?: No Close contact with a COVID-19 positive Pt in past 14-21 Days: No - Review of Systems Constitutional: No Symptoms, No Fever, No Chills Eyes: No Symptoms Ears, Nose, & Throat: No Symptoms Respiratory: No Symptoms, No Cough, No Dyspnea Cardiac: No Symptoms, No Chest Pain, No Edema, No Syncope Abdominal/Gastrointestinal: No Symptoms, No Abdominal Pain, No Nausea, No Vomiting, No Diarrhea Genitourinary Symptoms: No Symptoms, No Dysuria Musculoskeletal: No Symptoms, No Back Pain, No Neck Pain Skin: No Symptoms, No Rash Neurological: No Symptoms, No Dizziness, No Focal Weakness, No Sensory Changes Psychological: No Symptoms Endocrine: No Symptoms Hematologic/Lymphatic: No Symptoms Immunological/Allergic: No Symptoms All Other Systems: Reviewed and Negative - Past Medical History Pertinent Past Medical History: Yes Neurological History: No Pertinent History ENT History: No Pertinent History Cardiac History: Myocardial Infarction ([place]) Respiratory History: No Pertinent History Endocrine Medical History: No Pertinent History Musculoskeletal History: No Pertinent History GI Medical History: Colitis, Ulcer History: No Pertinent History Psycho-Social History: No Pertinent History Female Reproductive Disorders: No Pertinent History Other Medical History: Open heart surgery 5 years ago. Intestinal resection 07/22/20 - Past Surgical History Past Surgical History: Yes Neuro Surgical History: No Pertinent History Cardiac: CABG, Cardiac Catheterization, Cardiac Stent Respiratory: No Pertinent History Gastrointestinal: No Pertinent History, Bowel Surgery Genitourinary: No Pertinent History Musculoskeletal: No Pertinent History Female Surgical History: Hysterectomy Other Surgical History: childbirth x two,open heart december 25 2013 double bipass and carotid artery. cardiac stent [address] padilal - Social History Smoking Status: Never smoker Exposure to second hand smoke: No Drug Use: none Patient Lives Alone: No - Female History Hx Now: No - Nursing Vital Signs Nursing Vital Signs: Initial Vital Signs Temperature 97.3 F 07/24/20 07:13 Pulse Rate 84 07/24/20 07:13 Respiratory Rate 16 07/24/20 07:13 Blood Pressure 143/77 07/24/20 07:13 O2 Sat by Pulse Oximetry 97 07/24/20 07:13 Pain Scale Pain Intensity 0 - Physical Exam General Appearance: no apparent distress, alert Eye Exam: PERRL/EOMI, eyes nml inspection Ears, Nose, Throat Exam: normal ENT inspection, TMs normal, pharynx normal, moist mucous membranes Neck Exam: normal inspection, non-tender, supple, full range of motion Respiratory Exam: normal breath sounds, lungs clear, No respiratory distress Cardiovascular Exam: regular rate/rhythm, normal heart sounds, normal peripheral pulses Gastrointestinal/Abdomen Exam: soft, normal bowel sounds, other (Suprapubic tenderness. Bladder appears to be full. Findings are consistent with urinary retention.), No tenderness, No mass Back Exam: normal inspection, normal range of motion, No CVA tenderness, No vertebral tenderness Extremity Exam: normal inspection, normal range of motion, pelvis stable Neurologic Exam: alert, oriented x 3, cooperative, normal mood/affect, sensation nml, No motor deficits Skin Exam: normal color, warm, dry, other (Surgical incision intact. There is a little blood on the dressing. No active bleeding.), No rash Lymphatic Exam: No adenopathy SpO2 Interpretation: normal SpO2: 97 O2 Delivery: Room Air - Course Nursing assessment & vital signs reviewed: Yes Ordered Tests: Active Orders 24 hr Category Date Time Status Cath [Catheter-Chemult Mcginnis] STAT Care 07/24/20 07:24 Active CULTURE,URINE Stat Lab 07/24/20 07:27 Ordered UA W/RFX UR CULTURE Stat Lab 07/24/20 07:27 Completed Lab/Rad Data: Laboratory Results 07/24/20 Range/Units 07:27 Urine Color YELLOW (YELLOW) Urine Appearance CLEAR (CLEAR) Urine pH 7.0 (5-6) Ur Specific [place] 1.009 (1.005-1.025) Urine Protein NEGATIVE (Negative) Urine Ketones NEGATIVE (NEGATIVE) Urine Blood NEGATIVE (0-5) [place]lin/ul Urine Nitrite NEGATIVE (NEGATIVE) Urine Bilirubin NEGATIVE (NEGATIVE) Urine Urobilinogen 2 (0-1) mg/dL Ur Leukocyte Esterase NEGATIVE (NEGATIVE) Urine WBC (Auto) NONE (0-5) /HPF Urine RBC (Auto) NONE (0-2) /HPF U Epithel Cells (Auto) NONE (FEW) /HPF Urine Bacteria (Auto) NONE (NEGATIVE) /HPF Urine Culture Reflexed ORDERED SEPARATELY (NO) Urine Glucose 50 (NEGATIVE) mg/dL - Progress Progress: improved Progress Note: 07/24/20 08:35 500 cc clear urine expressed after insertion of Mcginnis catheter. Patient currently asymptomatic. Vital stable. Patient now sleeping. Patient states she did not sleep well because of suprapubic pain from urinary retention. Surgical wound was redressed. UA negative for UTI. Case discussed with the [facility]. Dr. Steven Bruno advises keeping the Mcginnis catheter in. Patient to see Dr. Hamilton Bruno tomorrow in the [place] office. Patient agrees to follow-up with her doctors within 48 hours for reevaluation. 07/24/20 09:26 Counseled pt/family regarding: lab results, diagnosis, need for follow-up - Departure Departure Disposition: Home Clinical Impression: Urinary retention, Surgical wound present Condition: Stable Critical Care Time: No Referrals: KYLER BARROS MD [Primary Care Provider] - Additional Instructions: Please follow-up with Dr. Hamilton Bruno tomorrow July 24, 2020 for a reevaluation. Dr. Bruno's office is in [facility]. Discharge/Care Plan GO WHITMORE was seen on 07/24/20 in the Emergency Room. The patient was counseled regarding Diagnosis,Lab results, Imaging studies, need for follow up and when to return to the Emergency Room. Prescriptions given: Discharge Note I have spoken with the patient and/or caregivers. I have explained the patient's condition, diagnosis and treatment plan based on the information available to me at this time. I have answered the patient's and/or caregiver's questions and addressed any concerns. The patient and/or caregivers have as good understanding of the patient's diagnosis, condition and treatment plan as can be expected at this point. The vital signs have been stable. The patient's condition is stable and appropriate for discharge from the emergency department. The patient will pursue further outpatient evaluation with the primary care physician or other designated or consulting physician as outlined in the discharge instructions. The patient and/or caregivers are agreeable to this plan of care and follow-up instructions have been explained in detail. The patient and/or caregivers have received these instruction. The patient/and or caregivers are aware that any significant change in condition or worsening of symptoms should prompt an immediate return to this or the closest emergency department or call 911.
[2020-07-24 07:37] LABS: Appearance CLEAR (CLEAR); Bilirubin NEGATIVE (NEGATIVE); Blood NEGATIVE Ery/ul (0-5); Glucose 50 mg/dL (NEGATIVE); Ketones NEGATIVE (NEGATIVE); Leukocyte Esterase NEGATIVE (NEGATIVE); Nitrite NEGATIVE (NEGATIVE); Protein,Urine Dip NEGATIVE (Negative); Specific Gravity 1.009 (1.005-1.025); Urobilinogen 2 mg/dL (0-1)
[2020-07-24 10:37] VITALS: BP 149/84; PULSE 88; O2SAT 98
== END 2020-07-24 10:40 | disposition home or self-care (01) ==
LOC: ED 06:34
DX: R33.9 Retention of urine, unspecified (principal); Z98.890 Other specified postprocedural states; Z79.899 Other long term (current) drug therapy
CPT/HCPCS: 51702; 81001; 87086; 99284

== ENCOUNTER 2021-05-20 06:58 | Emergency (ER) | payer MEDICARE, BC ==
[2021-05-20] MEDS ORDERED: TYLENOL 325 MG PO STA (07:20)
[2021-05-20] MEDS ORDERED: TYLENOL 325 MG ONE (07:22)
--- NOTE | 2021-05-20 08:12 | ERPHSYRPT ---
- History of Present Illness Time Seen by Provider: 05/20/21 07:12 Source: patient Exam Limitations: no limitations Patient Subjective Stated Complaint: Pt states that she has been having pain in her left leg for the past couple of days and thinks that she has a blood clot Triage Nursing Assessment: pt was brought to the ER by her , hypertensive, rates pain as 8/10, reports that the pain began in her lower left calf and has moved up just above the back side of her knee, leg is cool and pulses are normal, no history of DVT's, doesn't appear to be in any distress Physician History: 81 years old female with history of atrial fibrillation on Eliquis, hypertension, restless leg syndrome presented to the ER with chief complaint of left lower extremity pain dull aching mild intermittent for the last 2 days. P atient report initially it started in the lateral calf and now having some discomfort of the left lateral thigh without any obvious swelling redness. Denies any fall or trauma. Patient is very concerned about her having DVT. No fever or chills reported. Method of Injury: unknown Occurred: days ago (2) Quality: intermittent, dullness Severity of Pain-Max: mild Severity of Pain-Current: mild Lower Extremities Pain: leg: left, thigh: left Modifying Factors: Improves With: nothing Associated Symptoms: none Allergies/Adverse Reactions: No Known Drug Allergies Allergy (Verified 05/20/21 07:14) Home Medications: Metoprolol Succinate 50 mg [Toprol Xl 50 MG] 50 mg PO BID 01/02/14 [History] Losartan Potassium 50 mg [Cozaar 50 MG] 25 mg PO DAILY 01/18/17 [History] Apixaban [Eliquis] 5 mg PO BID 07/24/20 [History] Atorvastatin Calcium 10 mg PO HS 07/24/20 [History] Diltiazem HCl [Diltiazem 24Hr ER] 1 cap PO DAILY 07/24/20 [History] Gabapentin 100 mg PO BID 07/24/20 [History] Ropinirole HCl 1 mg PO DAILY 07/24/20 [History] Hx Tetanus, Diphtheria Vaccination/Date Given: Yes Hx Influenza Vaccination/Date Given: Yes Hx Pneumococcal Vaccination/Date Given: Yes Travel Risk - International Travel Have you traveled outside of the country in past 3 weeks: No - Coronavirus Screening Are you exhibiting any of the following symptoms?: No Close contact with a COVID-19 positive Pt in past 14-21 Days: No - Vaccine Status Have you recieved a Covid-19 vaccination: Yes 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: [email or web address] - Vaccination Dates Date of 2cond Vaccination (if applicable): unknown - Review of Systems Constitutional: No Symptoms Ears, Nose, & Throat: No Symptoms Respiratory: No Symptoms Cardiac: No Symptoms Abdominal/Gastrointestinal: No Symptoms Genitourinary Symptoms: No Symptoms Musculoskeletal: Myalgias Skin: No Symptoms Neurological: No Symptoms Psychological: No Symptoms Endocrine: No Symptoms Hematologic/Lymphatic: No Symptoms Immunological/Allergic: No Symptoms - Past Medical History Pertinent Past Medical History: Yes Neurological History: No Pertinent History ENT History: No Pertinent History Cardiac History: Myocardial Infarction ([place]) Respiratory History: No Pertinent History Endocrine Medical History: No Pertinent History Musculoskeletal History: No Pertinent History GI Medical History: Colitis, Ulcer History: No Pertinent History Psycho-Social History: No Pertinent History Female Reproductive Disorders: No Pertinent History Other Medical History: Open heart surgery 5 years ago. Intestinal resection 07/22/20 - Past Surgical History Past Surgical History: Yes Neuro Surgical History: No Pertinent History Cardiac: CABG, Cardiac Catheterization, Cardiac Stent Respiratory: No Pertinent History Gastrointestinal: No Pertinent History, Bowel Surgery Genitourinary: No Pertinent History Musculoskeletal: No Pertinent History Female Surgical History: Hysterectomy Other Surgical History: childbirth x two,open heart december 25 2013 double bipass and carotid artery. cardiac stent [address] padilla - Social History Smoking Status: Never smoker Exposure to second hand smoke: No Drug Use: none Patient Lives Alone: No - Female History Hx Now: No - Nursing Vital Signs Nursing Vital Signs: Initial Vital Signs Temperature 97.2 F 05/20/21 07:07 Pulse Rate 73 05/20/21 07:07 Blood Pressure 191/104 05/20/21 07:07 O2 Sat by Pulse Oximetry 98 05/20/21 07:07 Pain Scale Pain Intensity 8 - Physical Exam General Appearance: no apparent distress, alert, anxiety Eyes, Ears, Nose, Throat Exam: normal ENT inspection Neck Exam: normal inspection, full range of motion Cardiovascular/Respiratory Exam: normal breath sounds, irregularly irregular (Normal rate) Gastrointestinal/Abdominal Exam: non-tender, soft Hips Exam: bilateral: non-tender, normal inspection, normal range of motion, no evidence of injury Legs Exam: bilateral leg: non-tender, normal inspection, normal range of motion, no evidence of injury Knees Exam: bilateral knee: non-tender, normal inspection, normal range of motion, no evidence of injury Ankle Exam: bilateral ankle: non-tender, normal inspection, normal range of motion, no evidence of injury Foot Exam: bilateral foot: non-tender, normal inspection, normal range of motion, no evidence of injury Neuro/Tendon Exam: normal sensation, normal motor functions, normal tendon functions Mental Status Exam: alert, oriented x 3, cooperative Skin Exam: normal color SpO2 Interpretation: normal SpO2: 98 O2 Delivery: Room Air Ordered Tests: Active Orders 24 hr Category Date Time Status D-DIMER QUANTITATIVE Stat Lab 05/20/21 07:35 Completed Medication Summary Discontinued Medications Generic Name Dose Route Start Last Admin Trade Name Torres PRN Reason Stop Dose Admin Acetaminophen 650 mg 05/20/21 07:20 05/20/21 07:22 Acetaminophen 325 Mg Tablet PO 05/20/21 07:21 650 mg STAT STA Administration Acetaminophen Confirm 05/20/21 07:22 Acetaminophen 325 Mg Tablet Administered 05/20/21 07:23 Dose 650 mg .ROUTE [employer] ONE Lab/Rad Data: Laboratory Results 05/20/21 Range/Units 07:35 D-Dimer < 215 L (215-500) ng/mL - Progress Progress: improved Progress Note: 05/20/21 08:09 She does not have any difficulty ambulation. No sign symptoms suggesting cellulitis. No bony tenderness. No muscular tenderness at all. She walked without any difficulty while in here. No soft tissue swelling. Good/well palpable dorsalis pedis and cap refill less than 3 seconds. Did not miss dose of Eliquis. I have obtained a D-dimer which is negative. Patient is low risk for DVT with her taking Eliquis regularly and a negative D-dimer. Do not think needs ultrasound Doppler. Normal bony tenderness or trauma, do not think needs any other imaging. Stable for discharge. Recommended taking Tylenol as needed. Counseled pt/family regarding: lab results, diagnosis, need for follow-up - Departure Departure Disposition: Home Clinical Impression: Leg pain, left Condition: Stable Critical Care Time: No Referrals: KYLER BARROS MD [Primary Care Provider] - Follow up/PCP as directed (1-2 days for reevaluation) Instructions: Muscle and Bone Pain (DC), Deep Vein Thrombosis (Blood Clots in the Legs) (DC) Additional Instructions: Use compression stockings. Continue with your Eliquis. Take Tylenol as needed. Follow-up with your primary care for reevaluation. Return to ER if have continuous pain are developing swelling/redness/difficulty ambulation/fever chills etc.
== END 2021-05-20 08:19 | disposition home or self-care (01) ==
LOC: ED 06:58
DX: M79.662 Pain in left lower leg (principal); Z79.01 Long term (current) use of anticoagulants; Z79.899 Other long term (current) drug therapy
CPT/HCPCS: 36415; 85379; 99283; A9270-GY

== ENCOUNTER 2021-06-09 22:05 | Emergency (ER) | payer MEDICARE, BC ==
[2021-06-09] MEDS ORDERED: MORPHINE SULFATE 4 MG INJ IM ONE (22:37)
--- NOTE | 2021-06-09 22:46 | ERPHSYRPT ---
- History of Present Illness Time Seen by Provider: 06/09/21 22:20 Source: patient Exam Limitations: no limitations Patient Subjective Stated Complaint: " I feel a couple weeks ago and my leg won't stop hurting ". Triage Nursing Assessment: Pt arrives to ER ambulatory, stating drove her here due to her increased pain in her left hip that started a couple weeks ago after experiencing a hard fall onto wood floor. Pt ambulates with a slightly slow gait. Pt has no obvious deformity or abnormality. Pt states pain is deep in her leg and radiates around to buttock and down front of left thigh. States pain is constant dull ache and keeps getting worse. Pt skin is pink, warm, and dry. Respirations are unlabored and easy. Pt denies any further complaints. Physician History: 81 years old female on Eliquis presented to ER with chief complaint of left lateral thigh/hip pain for the last 2 weeks after she had a ground-level fall. Patient reports having x-rays done which were negative. Pain is dull aching, moderate intensity, more with ambulation and better with resting. No difficulty movements of hip/knee/ankle. No swelling of the leg. No numbness tingling weakness of left lower extremity. No fever or chills reported. Method of Injury: fell Occurred: days ago (14) Quality: sharpness Severity of Pain-Max: moderate Severity of Pain-Current: moderate Lower Extremities Pain: hip: left, leg: left Modifying Factors: Improves With: rest. Worsens With: movement Associated Symptoms: No unable to bear weight Allergies/Adverse Reactions: No Known Drug Allergies Allergy (Verified 05/20/21 07:14) Home Medications: Metoprolol Succinate 50 mg [Toprol Xl 50 MG] 50 mg PO BID 01/02/14 [History] Losartan Potassium 50 mg [Cozaar 50 MG] 25 mg PO DAILY 01/18/17 [History] Apixaban [Eliquis] 5 mg PO BID 07/24/20 [History] Atorvastatin Calcium 10 mg PO HS 07/24/20 [History] Diltiazem HCl [Diltiazem 24Hr ER] 1 cap PO DAILY 07/24/20 [History] Gabapentin 100 mg PO BID 07/24/20 [History] Hx Tetanus, Diphtheria Vaccination/Date Given: No Hx Influenza Vaccination/Date Given: Yes Hx Pneumococcal Vaccination/Date Given: No Immunizations Up to Date: Yes Travel Risk - International Travel Have you traveled outside of the country in past 3 weeks: No - Coronavirus Screening Are you exhibiting any of the following symptoms?: No Close contact with a COVID-19 positive Pt in past 14-21 Days: No - Vaccine Status Have you recieved a Covid-19 vaccination: Yes Tariff Counsel: Unknown - Vaccination Dates Dates if Unknown: n/a - Review of Systems Constitutional: No Symptoms Ears, Nose, & Throat: No Symptoms Respiratory: No Symptoms Cardiac: No Symptoms Abdominal/Gastrointestinal: No Symptoms Genitourinary Symptoms: No Symptoms Musculoskeletal: Fall, Injury, Myalgias Skin: No Symptoms Neurological: No Symptoms Psychological: No Symptoms Endocrine: No Symptoms Hematologic/Lymphatic: No Symptoms Immunological/Allergic: No Symptoms - Past Medical History Pertinent Past Medical History: Yes Neurological History: No Pertinent History ENT History: No Pertinent History Cardiac History: Myocardial Infarction ([place]) Respiratory History: No Pertinent History Endocrine Medical History: No Pertinent History Musculoskeletal History: No Pertinent History GI Medical History: Colitis, Ulcer History: No Pertinent History Psycho-Social History: No Pertinent History Female Reproductive Disorders: No Pertinent History Other Medical History: Open heart surgery 5 years ago. Intestinal resection 07/22/20 - Past Surgical History Past Surgical History: Yes Neuro Surgical History: No Pertinent History Cardiac: CABG, Cardiac Catheterization, Cardiac Stent Respiratory: No Pertinent History Gastrointestinal: No Pertinent History, Bowel Surgery Genitourinary: No Pertinent History Musculoskeletal: No Pertinent History Female Surgical History: Hysterectomy Other Surgical History: childbirth x two,open heart december 25 2013 double bipass and carotid artery. cardiac stent [address] padilla - Social History Smoking Status: Never smoker Exposure to second hand smoke: No Drug Use: none Patient Lives Alone: No - Female History Hx Now: No - Nursing Vital Signs Nursing Vital Signs: Initial Vital Signs Pulse Rate 66 06/09/21 22:18 Respiratory Rate 16 06/09/21 22:18 Blood Pressure 163/74 06/09/21 22:18 O2 Sat by Pulse Oximetry 95 06/09/21 22:18 Pain Scale Pain Intensity 9 - Physical Exam General Appearance: no apparent distress, alert Eyes, Ears, Nose, Throat Exam: normal ENT inspection Neck Exam: normal inspection, supple, full range of motion Cardiovascular/Respiratory Exam: normal breath sounds, regular rate/rhythm Gastrointestinal/Abdominal Exam: non-tender, soft Back Exam: normal inspection, normal range of motion Hips Exam: bilateral: non-tender, normal inspection, normal range of motion, no evidence of injury Legs Exam: bilateral leg: non-tender, normal inspection, normal range of motion, no evidence of injury Knees Exam: bilateral knee: non-tender, normal inspection, normal range of motion, no evidence of injury Ankle Exam: bilateral ankle: non-tender, normal inspection, normal range of motion, no evidence of injury Foot Exam: bilateral foot: non-tender, normal inspection, normal range of motion Neuro/Tendon Exam: normal sensation, normal motor functions, normal tendon functions Mental Status Exam: alert, oriented x 3, cooperative Skin Exam: normal color SpO2 Interpretation: normal SpO2: 95 O2 Delivery: Room Air Ordered Tests: Medication Summary Discontinued Medications Generic Name Dose Route Start Last Admin Trade Name Freq PRN Reason Stop Dose Admin Morphine Sulfate 4 mg 06/09/21 22:37 Morphine Sulfate 4 Mg/Ml Injection IM 06/09/21 22:38 STAT ONE - Progress Progress: improved Progress Note: She is given morphine for symptomatic relief. No signs of cellulitis. No obvious bony tenderness. Intact range of motion. I have obtained x-rays which are negative. Good bounding left lower extremity pulses. Tenderness is more on the lateral side. Did not miss dose of Eliquis. Recommended Tylenol and outpatient follow-up. Discussed signs symptoms of worsening needing return to ER which she seems understanding. Counseled pt/family regarding: diagnosis, need for follow-up, rad results - Departure Departure Disposition: Home Clinical Impression: Leg pain, left Condition: Stable Critical Care Time: No Referrals: KYLER BARROS MD [Primary Care Provider] - Follow up/PCP as directed (In 2 days for reevaluation) ORTHO - SAMANTHA DEUTSCH NP [NON-STAFF PHY W/O PRIVILEGES] - Follow up/PCP as directed (In 2 days for reevaluation) Instructions: Muscle Strain (DC) Additional Instructions: Take Tylenol as needed. Follow-up with primary care/Ortho for reevaluation. Return to ER for worsening pain, swelling, difficulty ambulation, redness, fever chills etc.
[2021-06-09] MEDS ORDERED: MORPHINE SULFATE 4 MG INJ ONE (22:54)
[2021-06-10 00:12] VITALS: BP 126/62; PULSE 63; O2SAT 95
--- NOTE | 2021-06-10 08:04 | XRAY ---
Indication: Pain following fall 2 weeks ago. Comparison: None 2 view left hip demonstrates mild osteopenia. No other bony, articular, or soft tissue abnormalities.
== END 2021-06-10 00:11 | disposition home or self-care (01) ==
LOC: ED 22:05
DX: M79.652 Pain in left thigh (principal); M25.552 Pain in left hip; I25.2 Old myocardial infarction; Z79.01 Long term (current) use of anticoagulants
CPT/HCPCS: 73502; 96372; 99284; J2270

== ENCOUNTER 2022-05-27 04:48 | Emergency (ER) | payer MEDICARE, BC ==
[2022-05-27 05:01] VITALS: BP 192/89; PULSE 64; O2SAT 96
[2022-05-27] MEDS ORDERED: Hydromorphone 1 mg/ml Injection ONE (05:12)
[2022-05-27] MEDS ORDERED: NORCO 5/325 MG ONE (05:12)
[2022-05-27] MEDS: NORCO 5/325 MG PO ONE (05:15)
--- NOTE | 2022-05-27 05:15 | ERPHSYRPT ---
- History of Present Illness Time Seen by Provider: 05/27/22 05:10 Source: patient Exam Limitations: no limitations Patient Subjective Stated Complaint: pt states she had a dental implant placed on right side of lower jaw last friday. pt has swelling and pain on left side of face that she rates as 7/10 Triage Nursing Assessment: pt is alert and oriented. walked to room without assist, face is noticably swollen and painful. pt rates pain as 7/10. Physician History: Patient is an 82-year-old white female who presents with a complaint of dental pain. For the past year her dentist has been working on an implant in her right mandibular area recently the implant became infected recently she saw the dentist. She has had pain all night unable to sleep.Her states that he is taking her to the dentist [place] today. Timing/Duration: gradual onset Severity: severe ENT Location: dental Prearrival Treatment: prescription meds (Amoxicillin) Modifying Factors: Improves With: nothing Associated Symptoms: facial pain/swelling, jaw pain Allergies/Adverse Reactions: No Known Drug Allergies Allergy (Verified 05/20/21 07:14) Home Medications: Metoprolol Succinate 50 mg [Toprol Xl 50 MG] 50 mg PO BID 01/02/14 [History] Losartan Potassium 50 mg [Cozaar 50 MG] 25 mg PO DAILY 01/18/17 [History] Apixaban [Eliquis] 5 mg PO BID 07/24/20 [History] Atorvastatin Calcium 10 mg PO HS 07/24/20 [History] Diltiazem HCl [Diltiazem 24Hr ER] 1 cap PO DAILY 07/24/20 [History] Gabapentin 100 mg PO BID 07/24/20 [History] Hx Tetanus, Diphtheria Vaccination/Date Given: No Hx Influenza Vaccination/Date Given: Yes Hx Pneumococcal Vaccination/Date Given: No Travel Risk - International Travel Have you traveled outside of the country in past 3 weeks: No - Coronavirus Screening Are you exhibiting any of the following symptoms?: No Close contact with a COVID-19 positive Pt in past 14-21 Days: No - Vaccine Status Have you recieved a Covid-19 vaccination: Yes 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 - Vaccination Dates Date of 2cond Vaccination (if applicable): unknown - Review of Systems Constitutional: No Fever, No Chills Eyes: No Symptoms Ears, Nose, & Throat: No Symptoms, Mouth Pain Respiratory: No Cough, No Dyspnea Cardiac: No Chest Pain, No Edema, No Syncope Abdominal/Gastrointestinal: No Abdominal Pain, No Nausea, No Vomiting, No Diarr hea Genitourinary Symptoms: No Dysuria Musculoskeletal: No Back Pain, No Neck Pain Skin: No Rash Neurological: No Dizziness, No Focal Weakness, No Sensory Changes Psychological: No Symptoms Endocrine: No Symptoms All Other Systems: Reviewed and Negative - Past Medical History Pertinent Past Medical History: Yes Neurological History: No Pertinent History ENT History: No Pertinent History Cardiac History: High Cholesterol, Hypertension, Myocardial Infarction ([place]) Respiratory History: No Pertinent History Endocrine Medical History: No Pertinent History Musculoskeletal History: No Pertinent History GI Medical History: Colitis, Ulcer History: No Pertinent History Psycho-Social History: No Pertinent History Female Reproductive Disorders: No Pertinent History Other Medical History: Open heart surgery 5 years ago. Intestinal resection 07/22/20 - Past Surgical History Past Surgical History: Yes Neuro Surgical History: No Pertinent History Cardiac: CABG, Cardiac Catheterization, Cardiac Stent Respiratory: No Pertinent History Gastrointestinal: No Pertinent History, Bowel Surgery Genitourinary: No Pertinent History Musculoskeletal: No Pertinent History Female Surgical History: Hysterectomy Other Surgical History: childbirth x two,open heart december 25 2013 double bipass and carotid artery. cardiac stent [address] padilla - Social History Smoking Status: Never smoker Exposure to second hand smoke: No Drug Use: none Patient Lives Alone: No - Nursing Vital Signs Nursing Vital Signs: Initial Vital Signs Temperature 97.8 F 05/27/22 04:50 Pulse Rate 64 05/27/22 04:50 Respiratory Rate 18 05/27/22 04:50 Blood Pressure 192/89 05/27/22 04:50 O2 Sat by Pulse Oximetry 96 05/27/22 04:50 Pain Scale Pain Intensity 7 - Physical Exam General Appearance: moderate distress, alert, other (Swelling of the right mandibular area) Eye Exam: right eye: vision changes, bilateral eye: PERRL, EOMI Ear Exam: bilateral ear: auricle normal, canal normal Nasal Exam: normal inspection Throat Exam: pharynx normal, moist mucus membranes, tongue swollen (Swelling of the face and the right side of the tongue evidence of recent dental work with sutures in place.), No tonsillar exudate, No voice changes Neck Exam: normal inspection, supple Cardiovascular/Respiratory Exam: no respiratory distress, No JVD Neurologic Exam: alert, oriented x 3 Skin Exam: normal color, warm, dry SpO2 Interpretation: normal SpO2: 96 O2 Delivery: Room Air - Course Nursing assessment & vital signs reviewed: Yes - Progress Progress: improved - Departure Departure Disposition: Home Clinical Impression: Dental abscess Condition: Stable Critical Care Time: No Referrals: KYLER BARROS MD [Primary Care Provider] - Follow up/PCP as directed
[2022-05-27] MEDS: Hydromorphone 1 mg/ml Injection IM ONE (05:17)
== END 2022-05-27 05:36 | disposition home or self-care (01) ==
LOC: ED 04:48
DX: K04.7 Periapical abscess without sinus (principal); K08.89 Other specified disorders of teeth and supporting structures; E78.5 Hyperlipidemia, unspecified; I10 Essential (primary) hypertension; Z79.01 Long term (current) use of anticoagulants; Z79.899 Other long term (current) drug therapy
CPT/HCPCS: 96372; 99283; J1170; A9270-GY

== ENCOUNTER 2022-05-29 15:42 | Emergency (ER) | payer MEDICARE, BC ==
[2022-05-29] MEDS ORDERED: Adacel Vial IM ONE ×2 (16:07→16:11)
--- NOTE | 2022-05-29 16:43 | ERPHSYRPT ---
- History of Present Illness Time Seen by Provider: 05/29/22 15:43 Source: patient, family Exam Limitations: no limitations Patient Subjective Stated Complaint: mechanical fall on concrete today causing laceration to L eye lid and abrasions to nose and lower lip Triage Nursing Assessment: pt to ED c/o laceration to L eye lid and abrasions to nose and lower lip. 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 pt rates 2/10 pain to face. bleeding controlled on arrival. teeth appear to be without damage. pt on blood thinners. A&Ox4. did not lose consciouness. Physician History: 82 years old female with a history of hypertension, hyperlipidemia, irregular heart rhythm on Eliquis presented to the ER with a chief complaint of fall and injury to left orbital area, nose and upper lip and ankle. Patient reports she was unloading pieces of wood with her from the truck, somehow lost balance and fell on concrete. She has a laceration left upper lid, bleeding initially but stopped with applying pressure. She is complaining of dull aching mild headache with pain in the nose and lower lip. No loss of consciousness. Denies any feeling of dizziness, lightheadedness, chest pain palpitations or shortness of breath before or after the fall. No visual disturbance, difficulty speech, focal numbness tingling or weakness. She recently has dental work-up done and does have swelling from that in the left face. Occurred: just prior to arrival Reason for Fall: fell from standing pos Injuries/Pain Location: head, face, lower extremity Loss of Consciousness: no loss of consciousness Quality: sharpness Severity of Pain-Max: mild Severity of Pain-Current: mild Modifying Factors: Improves With: nothing Associated Symptoms (Fall): extremity injury, headache, No abdominal pain, No back pain, No confusion, No chest pain, No dizziness, No lightheadedness, No muscle spasms, No neck pain, No ringing in ears, No seizures, No shortness of breath, No slurred speech, No trouble walking, No vomiting, No vision changes Allergies/Adverse Reactions: No Known Drug Allergies Allergy (Verified 05/29/22 15:52) Home Medications: Metoprolol Succinate 50 mg [Toprol Xl 50 MG] 50 mg PO BID 01/02/14 [History] Losartan Potassium 50 mg [Cozaar 50 MG] 25 mg PO DAILY 01/18/17 [History] Apixaban [Eliquis] 5 mg PO BID 07/24/20 [History] Atorvastatin Calcium 10 mg PO HS 07/24/20 [History] Diltiazem HCl [Diltiazem 24Hr ER] 1 cap PO DAILY 07/24/20 [History] Gabapentin 100 mg PO BID 07/24/20 [History] Hx Tetanus, Diphtheria Vaccination/Date Given: Yes Hx Influenza Vaccination/Date Given: Yes Hx Pneumococcal Vaccination/Date Given: No Immunizations Up to Date: Yes Travel Risk - International Travel Have you traveled outside of the country in past 3 weeks: No - Coronavirus Screening Are you exhibiting any of the following symptoms?: No Close contact with a COVID-19 positive Pt in past 14-21 Days: No - Vaccine Status Have you recieved a Covid-19 vaccination: Yes 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 - Vaccination Dates Date of 2cond Vaccination (if applicable): unknown - Review of Systems Constitutional: No Symptoms Eyes: Other Ears, Nose, & Throat: Nose Pain, Mouth Pain Respiratory: No Symptoms Cardiac: No Symptoms Abdominal/Gastrointestinal: Constipation Genitourinary Symptoms: No Symptoms Musculoskeletal: Fall, Injury Skin: Skin Lesions Neurological: Headache Psychological: No Symptoms Endocrine: No Symptoms Hematologic/Lymphatic: Easy Bleeding Immunological/Allergic: No Symptoms - Past Medical History Pertinent Past Medical History: Yes Neurological History: No Pertinent History ENT History: No Pertinent History Cardiac History: High Cholesterol, Hypertension, Myocardial Infarction ([place]) Respiratory History: No Pertinent History Endocrine Medical History: No Pertinent History Musculoskeletal History: No Pertinent History GI Medical History: Colitis, Ulcer History: No Pertinent History Psycho-Social History: No Pertinent History Female Reproductive Disorders: No Pertinent History Other Medical History: Open heart surgery 5 years ago. Intestinal resection 07/22/20 - Past Surgical History Past Surgical History: Yes Neuro Surgical History: No Pertinent History Cardiac: CABG, Cardiac Catheterization, Cardiac Stent Respiratory: No Pertinent History Gastrointestinal: No Pertinent History, Bowel Surgery Genitourinary: No Pertinent History Musculoskeletal: No Pertinent History Female Surgical History: Hysterectomy Other Surgical History: childbirth x two,open heart december 25 2013 double bipass and carotid artery. cardiac stent [address] padilla - Social History Smoking Status: Never smoker Exposure to second hand smoke: No Drug Use: none Patient Lives Alone: No - Nursing Vital Signs Nursing Vital Signs: Initial Vital Signs Temperature 97.6 F 05/29/22 15:53 Blood Pressure 185/84 05/29/22 15:53 Pain Scale Pain Intensity 4 - [place] Coma Score Best Eye Response ([place]): (4) open spontaneously Best Verbal Response ([place]): (5) oriented Best Motor Response (Jie): (6) obeys commands [place] Total: 15 - Physical Exam General Appearance: no apparent distress, alert Head Injury: No Vidal's Sign, No contusions, No tenderness Eye Exam: PERRL/EOMI, other (2.5 cm straight laceration left lateral upper leg with no oozing or spurting. No orbital wall tenderness.) ENT Exam: nml ext.inspection, other (Nasal abrasion with some tenderness. Also having lower lip abrasion. No mandibular tenderness. No instability of roof of mouth), No dental injury Neck Exam: supple, trachea midline, full range of motion, normal alignment, normal inspection Respiratory/Chest Exam: normal breath sounds, respiratory distress, No chest tenderness Cardiovascular Exam: normal heart sounds, regular rate/rhythm Gastrointestinal Exam: soft, No tenderness Back Exam: normal inspection, normal range of motion Extremity Exam: normal inspection, normal range of motion, pain with movement (Ankle), tenderness Neurologic Exam: alert, oriented x 3, cooperative Skin Exam: normal color SpO2 Interpretation: normal SpO2: 95 O2 Delivery: Room Air Procedures - Laceration/Wound Repair Left Eye Time of Procedure: 17:08 Wound Location: Left, face (Upper lid) Wound Length (cm): 2.5 Wound's Depth, Shape: superficial, linear Wound Explored: clean Irrigated: Yes Hibiclens Prep: Yes Wound Repaired With: Steri-strips, Dermabond Sterile Dressing Applied?: No Ordered Tests: Active Orders 24 hr Category Date Time Status ANKLE (3 VIEWS) Stat Exams 05/29/22 Completed CERVICAL SPINE WO CONTRAST [CT] Stat Exams 05/29/22 16:49 Completed FACIAL BONES WO CONTRAST [CT] Stat Exams 05/29/22 16:07 Completed FOOT (MINIMUM 3 VIEWS) Stat Exams 05/29/22 16:57 Completed HEAD WITHOUT CONTRAST [CT] Stat Exams 05/29/22 16:07 Completed Medication Summary Discontinued Medications Generic Name Dose Route Start Last Admin Trade Name Freq PRN Reason Stop Dose Admin Diphtheria/Tetanus/Acell Pertussis 0.5 ml 05/29/22 16:07 05/29/22 16:15 Tdap --Diph,Pertuss(Acell),Tet Vac/Pf 0.5 Ml Vial IM 05/29/22 16:08 0.5 ml .ONCE ONE Administration Diphtheria/Tetanus/Acell Pertussis Confirm 05/29/22 16:11 Tdap --Diph,Pertuss(Acell),Tet Vac/Pf 0.5 Ml Vial Administered 05/29/22 16:12 Dose 0.5 ml IM .STK-MED ONE - Progress Progress: improved Progress Note: 05/29/22 17:29 She is offered pain medication which she refused. She has a clear mechanical fall. CT head cervical spine, facial bones negative for any acute fracture, trauma related findings. Does have laceration left upper leg area. She has very thin skin and I have recommended Dermabond with Steri-Strips as I doubt that suture will cut through. Laceration is repaired. Bacitracin apply on the abrasions. X-rays of foot is negative as well. Recommended Tylenol. Outpatient follow-up. Discussed signs symptoms of worsening needing return to ER which she seems understanding. Counseled pt/family regarding: diagnosis, need for follow-up, rad results - Departure Departure Disposition: Home Clinical Impression: Eyelid laceration, Nasal contusion, Fall Condition: Stable Critical Care Time: No Referrals: KYLER BARROS MD [Primary Care Provider] - Follow Up with PCP/3 days Instructions: Laceration Repair With Glue (DC), Head Injury Observation (DC) Additional Instructions: Take Tylenol as needed for pain. Intermittent ice application. Follow-up with primary care for reevaluation. Follow head injury instructions and return to ER for any worsening.
[2022-05-29 16:51] VITALS: BP 168/89
--- NOTE | 2022-05-29 17:01 | XRAY ---
Indication: Status post fall. Left periorbital laceration. Multiple contiguous axial images obtained through the head without contrast. Comparison: November 13, 2020 Again age-appropriate global atrophy and moderate periventricular degenerative micro-ischemia bilaterally. No acute intracranial hemorrhage, abnormal extra-axial fluid collection, or mass effect. Fourth ventricle is midline without hydrocephalus. Bony calvarium intact. Visualized paranasal sinuses and mastoid air cells are clear. Impression: Continued nonacute senile brain.
--- NOTE | 2022-05-29 17:03 | XRAY ---
Indication: Status post fall. Left periorbital laceration. Multiple contiguous axial images obtained through the cervical spine. Sagittal and coronal reformatted images obtained. Comparison: None Osseous structures demineralized consistent patient's age. Axial images negative for acute fracture, suspicious bony lesions, or spinal canal stenosis. Minimal/mild C4-C7 degenerative endplate spurring. Facets are symmetric. Sagittal and coronal reformatted images demonstrates normal cervical lordosis with minimal 1 mm C7 anterolisthesis. Mild C4-C7 disc space narrowing. No acute compression fracture or jumped facet. Normal appearing craniocervical junction. Visualized noncontrasted soft tissues demonstrates mild bilateral carotid calcifications. Lung apices are clear. Impression: 1. Osteopenia, mild multilevel degenerative spondylosis, and minimal grade 1 C7 spondylolisthesis. 2. Negative acute fracture.
--- NOTE | 2022-05-29 17:05 | XRAY ---
Indication: Status post fall. Left periorbital laceration. Multiple contiguous axial images obtained through the facial bones. Sagittal and coronal reformatted images obtained. Comparison: None A few bilateral dental amalgams produces beam artifact. Osseous structures demineralized consistent with patient's age. No acute fracture, suspicious bony lesions, or radiopaque foreign body. Orbits including roots, hernandez, and floors intact. Moderate/advanced bilateral TMJ degenerative changes. Paranasal sinuses and nasal passages are clear. Minimal nasal septal deviation to the right. Visualized noncontrasted soft tissues are unremarkable. Impression: Osteopenia and bilateral TMJ degenerative changes. Remaining CT facial bones negative.
--- NOTE | 2022-05-29 17:07 | XRAY ---
Indication: Pain following fall. Comparison: None 3 nonweightbearing views right foot demonstrates osteopenia and small posterior/tiny plantar heel spurs. No other bony, articular, or soft tissue abnormalities.
--- NOTE | 2022-05-29 17:07 | XRAY ---
Indication: Pain following fall. Comparison: None 3 view right ankle demonstrates osteopenia, small posterior/tiny plantar heel spurs, and mild lower leg vascular calcifications. No other bony, articular, or soft tissue abnormalities.
[2022-05-29 17:31] VITALS: O2SAT 95
[2022-05-29 17:34] VITALS: PULSE 61
== END 2022-05-29 17:42 | disposition home or self-care (01) ==
LOC: ED 15:42
DX: S01.112A Laceration without foreign body of left eyelid and periocular area, initial encounter (principal); S00.33XA Contusion of nose, initial encounter; W01.10XA Fall on same level from slipping, tripping and stumbling with subsequent striking against unspecified object, initial encounter; R51.9 Headache, unspecified; M25.572 Pain in left ankle and joints of left foot; E78.5 Hyperlipidemia, unspecified; I10 Essential (primary) hypertension; Z79.01 Long term (current) use of anticoagulants; Z79.899 Other long term (current) drug therapy
CPT/HCPCS: 12011; 70450; 70486; 72125; 73610; 73630; 90471; 90715; 99283

== ENCOUNTER 2022-06-01 10:18 | Emergency (ER) | payer MEDICARE, BC ==
[2022-06-01] MEDS ORDERED: ARZOL Silver Nitrate Applicator TP ONE (10:39)
--- NOTE | 2022-06-01 11:01 | ERPHSYRPT ---
- History of Present Illness Time Seen by Provider: 06/01/22 10:29 Source: patient Exam Limitations: no limitations Patient Subjective Stated Complaint: pt here for bleeding from an old laceration, she fell wed and was seen here , they glued her laceration to left eye lid, she states the glue came off today and id now bleeding she is on blood thinners Triage Nursing Assessment: pt alert, resp easy, skin w/d/p. has bruising to face, and bleeding from laceration to left eye lid,pressure applied Physician History: 82 years old female who took a fall 3 days ago with a laceration left eyelid which was repaired with glue and Steri-Strips and this morning she woke up with Steri-Strips off and active oozing. She could not stop bleeding despite applying pressure. Denies any new fall or trauma but might have accidentally rubbed the area while asleep. No pain reported. Allergies/Adverse Reactions: No Known Drug Allergies Allergy (Verified 06/01/22 10:24) Home Medications: Metoprolol Succinate 50 mg [Toprol Xl 50 MG] 50 mg PO BID 01/02/14 [History] Losartan Potassium 50 mg [Cozaar 50 MG] 25 mg PO DAILY 01/18/17 [History] Apixaban [Eliquis] 5 mg PO BID 07/24/20 [History] Atorvastatin Calcium 10 mg PO HS 07/24/20 [History] Diltiazem HCl [Diltiazem 24Hr ER] 1 cap PO DAILY 07/24/20 [History] Gabapentin 400 mg PO DAILY 07/24/20 [History] Aspirin EC 81 mg [Ecotrin 81 mg] 81 mg PO DAILY 06/01/22 [History] Ferrous Sulfate 325 mg [Feosol 325 mg] 325 mg PO DAILY 06/01/22 [History] Isosorbide Mononitrate [Isosorbide Mononitrate ER] 30 mg PO DAILY 06/01/22 [History] Memantine HCl [Namenda] 10 mg PO BID 06/01/22 [History] Ropinirole HCl 1 mg PO QID 06/01/22 [History] Hx Tetanus, Diphtheria Vaccination/Date Given: Yes Hx Influenza Vaccination/Date Given: Yes Hx Pneumococcal Vaccination/Date Given: Yes Immunizations Up to Date: Yes Travel Risk - International Travel Have you traveled outside of the country in past 3 weeks: No - Coronavirus Screening Are you exhibiting any of the following symptoms?: No - Vaccine Status Have you recieved a Covid-19 vaccination: Yes Credit Historian: Moderna - Vaccination Dates Date of 2cond Vaccination (if applicable): unknown - Review of Systems Constitutional: No Symptoms Eyes: Eye Redness Ears, Nose, & Throat: No Symptoms Respiratory: No Symptoms Abdominal/Gastrointestinal: No Symptoms Musculoskeletal: Injury Neurological: No Symptoms Psychological: No Symptoms Hematologic/Lymphatic: Easy Bleeding, Easy Bruising Immunological/Allergic: No Symptoms - Past Medical History Pertinent Past Medical History: Yes Neurological History: No Pertinent History ENT History: No Pertinent History Cardiac History: High Cholesterol, Hypertension, Myocardial Infarction ([place]) Respiratory History: No Pertinent History Endocrine Medical History: No Pertinent History Musculoskeletal History: No Pertinent History GI Medical History: Colitis, Ulcer History: No Pertinent History Psycho-Social History: No Pertinent History Female Reproductive Disorders: No Pertinent History Other Medical History: Open heart surgery 5 years ago. Intestinal resection 07/22/20 - Past Surgical History Past Surgical History: Yes Neuro Surgical History: No Pertinent History Cardiac: CABG, Cardiac Catheterization, Cardiac Stent Respiratory: No Pertinent History Gastrointestinal: No Pertinent History, Bowel Surgery Genitourinary: No Pertinent History Musculoskeletal: No Pertinent History Female Surgical History: Hysterectomy Other Surgical History: childbirth x two,open heart december 25 2013 double bipass and carotid artery. cardiac stent [address] padilla - Social History Smoking Status: Never smoker Exposure to second hand smoke: No Drug Use: none Patient Lives Alone: No - Nursing Vital Signs Nursing Vital Signs: Initial Vital Signs Temperature 97.2 F 06/01/22 10:25 Pulse Rate 70 06/01/22 10:25 Respiratory Rate 18 06/01/22 10:25 Blood Pressure 191/90 06/01/22 10:25 O2 Sat by Pulse Oximetry 94 L 06/01/22 10:25 Pain Scale Pain Intensity 0 - Physical Exam General Appearance: no apparent distress, alert Eye Exam: PERRL/EOMI, other (Ecchymosis around left eye. Intact range of motion of left eye. 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 Outpatient follow-up recommended. Counseled pt/family regarding: diagnosis, need for follow-up - Departure Departure Disposition: Home Clinical Impression: Eyelid laceration Condition: Stable Critical Care Time: No Referrals: KYLER BARROS MD [Primary Care Provider] - Follow up/PCP as directed (In 2 days for reevaluation) Instructions: Laceration Repair With Glue (DC) Additional Instructions: Apply firm pressure for 5 minutes if again has bleeding. Keep area clean and covered at nighttime to avoid rubbing. Follow-up with primary care for reevaluation return to ER if having bleeding again.
[2022-06-01 11:03] VITALS: BP 148/87; PULSE 55
[2022-06-01 11:08] VITALS: O2SAT 94
== END 2022-06-01 11:08 | disposition home or self-care (01) ==
LOC: ED 10:18
DX: S01.112A Laceration without foreign body of left eyelid and periocular area, initial encounter (principal); W19.XXXA Unspecified fall, initial encounter; E78.5 Hyperlipidemia, unspecified; I10 Essential (primary) hypertension; Z79.01 Long term (current) use of anticoagulants; Z79.899 Other long term (current) drug therapy
CPT/HCPCS: 99281; A9270-GY

== ENCOUNTER 2023-02-25 06:36 | Emergency (ER) | payer MEDICARE, BC ==
[2023-02-25] MEDS ORDERED: Kenalog-40 IM ONE (07:02)
--- NOTE | 2023-02-25 07:04 | ERPHSYRPT ---
- History of Present Illness Time Seen by Provider: 02/25/23 07:04 Source: patient Exam Limitations: no limitations Physician History: Patient is an 82-year-old white female who presents with a complaint of itching all over for almost 9 days. She did have an exposure to poison blake at about the same time as the itching started. She and her cleaned up a tree that blew down across her driveway that was covered with poison blake. She denies any difficulty breathing any shortness of breath difficulty swallowing etc. Timing/Duration: day(s) (9) Quality: itchy Severity: moderate Location: generalized Possible Causes: exposure to allergen, poison blake Associated Symptoms: rash Allergies/Adverse Reactions: No Known Drug Allergies Allergy (Verified 06/01/22 10:24) Home Medications: Metoprolol Succinate 50 mg [Toprol Xl 50 MG] 50 mg PO BID 01/02/14 [History] Losartan Potassium 50 mg [Cozaar 50 MG] 25 mg PO DAILY 01/18/17 [History] Apixaban [Eliquis] 5 mg PO BID 07/24/20 [History] Atorvastatin Calcium 10 mg PO HS 07/24/20 [History] dilTIAZem HCL [Diltiazem 24Hr ER] 1 cap PO DAILY 07/24/20 [History] Aspirin EC 81 mg [Ecotrin 81 mg] 81 mg PO DAILY 06/01/22 [History] Ferrous Sulfate 325 mg [Feosol 325 mg] 325 mg PO DAILY 06/01/22 [History] Isosorbide Mononitrate [Isosorbide Mononitrate ER] 30 mg PO DAILY 06/01/22 [History] Memantine HCl [Namenda] 10 mg PO BID 06/01/22 [History] Ropinirole HCl 1 mg PO QID 06/01/22 [History] Citalopram Hydrobromide [Celexa] 10 mg PO HS 02/25/23 [History] Temazepam [Restoril] 30 mg PO HS 02/25/23 [History] Hx Tetanus, Diphtheria Vaccination/Date Given: Yes Hx Influenza Vaccination/Date Given: Yes Hx Pneumococcal Vaccination/Date Given: Yes Travel Risk - Vaccine Status Have you recieved a Covid-19 vaccination: Yes 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 - Vaccination Dates Date of 2cond Vaccination (if applicable): unknown - Review of Systems Constitutional: No Fever, No Chills Eyes: No Symptoms Ears, Nose, & Throat: No Symptoms Respiratory: No Cough, No Dyspnea Cardiac: No Chest Pain, No Edema, No Syncope Abdominal/Gastrointestinal: No Abdominal Pain, No Nausea, No Vomiting, No Diarrhea Genitourinary Symptoms: No Dysuria Musculoskeletal: No Back Pain, No Neck Pain Skin: Pruritis, Rash Neurological: No Dizziness, No Focal Weakness, No Sensory Changes Psychological: No Symptoms Endocrine: No Symptoms All Other Systems: Reviewed and Negative - Past Medical History Pertinent Past Medical History: Yes Neurological History: No Pertinent History ENT History: No Pertinent History Cardiac History: High Cholesterol, Hypertension, Myocardial Infarction ([place]) Respiratory History: No Pertinent History Endocrine Medical History: No Pertinent History Musculoskeletal History: No Pertinent History GI Medical History: Colitis, Ulcer History: No Pertinent History Psycho-Social History: No Pertinent History Female Reproductive Disorders: No Pertinent History Other Medical History: Open heart surgery 5 years ago. Intestinal resection 07/22/20 - Past Surgical History Past Surgical History: Yes Neuro Surgical History: No Pertinent History Cardiac: CABG, Cardiac Catheterization, Cardiac Stent Respiratory: No Pertinent History Gastrointestinal: No Pertinent History, Bowel Surgery Genitourinary: No Pertinent History Musculoskeletal: No Pertinent History Female Surgical History: Hysterectomy Other Surgical History: childbirth x two,open heart december 25 2013 double bipass and carotid artery. cardiac stent [address] padilla - Social History Smoking Status: Never smoker Exposure to second hand smoke: No Drug Use: none Patient Lives Alone: No - Physical Exam General Appearance: mild distress, alert Eye Exam: PERRL/EOMI, eyes nml inspection Ears, Nose, Throat Exam: normal ENT inspection, pharynx normal, moist mucous membranes Neck Exam: normal inspection, non-tender, supple, full range of motion Respiratory Exam: normal breath sounds, lungs clear, No respiratory distress Cardiovascular Exam: regular rate/rhythm, normal heart sounds Gastrointestinal/Abdomen Exam: soft, mass, No tenderness Back Exam: normal inspection, normal range of motion, No CVA tenderness, No vertebral tenderness Extremity Exam: normal inspection, normal range of motion Neurologic Exam: alert, oriented x 3, cooperative, normal mood/affect, sensation nml, No motor deficits Skin Exam: rash SpO2 Interpretation: normal SpO2: 100 O2 Delivery: Room Air - Course Nursing assessment & vital signs reviewed: Yes - Progress Progress: unchanged Medical Desision Making - Risk of complications Minimal Risk: Minimal risk of morbidity - Departure Departure Disposition: Home Clinical Impression: Contact dermatitis Condition: Stable Critical Care Time: No Referrals: KYLER BARROS MD [Primary Care Provider] - Follow up/PCP as directed Instructions: Contact Dermatitis (DC) Prescriptions: Prednisone 10 mg [Deltasone 10 mg] 20 mg PO BID #12 tablet
[2023-02-25 07:08] VITALS: RESP 16; TEMP 96.6
[2023-02-25 07:16] VITALS: O2SAT 100
[2023-02-25] MEDS ORDERED: Kenalog-40 ONE (07:17)
[2023-02-25 07:31] VITALS: BP 159/86; PULSE 59
== END 2023-02-25 07:43 | disposition home or self-care (01) ==
LOC: ED 06:36
DX: L23.7 Allergic contact dermatitis due to plants, except food (principal); E78.5 Hyperlipidemia, unspecified; I10 Essential (primary) hypertension; Z79.01 Long term (current) use of anticoagulants; Z79.899 Other long term (current) drug therapy; Z79.52 Long term (current) use of systemic steroids
CPT/HCPCS: 96372; 99282; J3301

== ENCOUNTER 2023-06-24 21:01 | Emergency (ER) | payer MEDICARE, BC ==
[2023-06-24 21:56] VITALS: BP 158/72; TEMP 99.1
[2023-06-24 22:55] LABS: Group A Strep NOT DETECTED (NEGATIVE)
[2023-06-24 23:05] LABS: INFLUENZA A NEGATIVE (NEGATIVE); INFLUENZA B NEGATIVE (NEGATIVE); SARS-CoV-2 Xpert Express NEGATIVE (NEGATIVE)
[2023-06-24 23:06] LABS: RESPIRATORY SYNCTIAL VIRUS POSITIVE (NEGATIVE)
--- NOTE | 2023-06-24 23:40 | ERPHSYRPT ---
- History of Present Illness Time Seen by Provider: 06/24/23 21:50 Source: patient Exam Limitations: no limitations Patient Subjective Stated Complaint: pt state she has had a cough for the past 3 months Triage Nursing Assessment: pt ambulated into the er; pt is axo x3; c/o cough; dry hacking cough present; clear lung sounds in all lobes; clear heart tone; skin PDW; no respiratory distress; hypertensive Physician History: Patient is an 83-year-old female presents to our emergency department for a cough that has been ongoing for 3 months she is here today because she states "I am tired of dealing with it". Patient has a appointment with a facility manager histology however states that it is in 3 months from now. Patient has seen her primary care doctor regarding the problem. Patient reports that primary care doctor thinks it is reflux. Patient is currently on losartan. She has no other complaints. No chest pain or shortness of breath. No nausea vomiting or diaphoresis. Patient at bedside. They voiced no other complaints or concerns at this time. Portions of this note were created with voice recognition technology. There may be grammatical, spelling, punctuation or sound alike errors Timing/Duration: other (3 months) Severity: moderate Modifying Factors: Improves With: nothing Associated Symptoms: denies symptoms Allergies/Adverse Reactions: No Known Drug Allergies Allergy (Verified 06/24/23 21:37) Home Medications: Metoprolol Succinate 50 mg [Toprol Xl 50 MG] 50 mg PO BID 01/02/14 [History] Losartan Potassium 50 mg [Cozaar 50 MG] 25 mg PO DAILY 01/18/17 [History] Apixaban [Eliquis] 5 mg PO DAILY 07/24/20 [History] Atorvastatin Calcium 10 mg PO EVENING MEAL 07/24/20 [History] dilTIAZem HCL [Diltiazem 24Hr ER] 1 cap PO DAILY 07/24/20 [History] Aspirin EC 81 mg [Ecotrin 81 mg] 81 mg PO DAILY 06/01/22 [History] Ferrous Sulfate 325 mg [Feosol 325 mg] 325 mg PO DAILY 06/01/22 [History] Isosorbide Mononitrate [Isosorbide Mononitrate ER] 30 mg PO DAILY 06/01/22 [History] Memantine HCl [Namenda] 1 tab PO BID 06/01/22 [History] Ropinirole HCl 1 mg PO QID 06/01/22 [History] Hx Tetanus, Diphtheria Vaccination/Date Given: Yes Hx Influenza Vaccination/Date Given: Yes Hx Pneumococcal Vaccination/Date Given: No Travel Risk - International Travel Have you traveled outside of the country in past 3 weeks: No - Coronavirus Screening Are you exhibiting any of the following symptoms?: Yes Symptoms: Cough: New Onset Close contact with a COVID-19 positive Pt in past 14-21 Days: No - Vaccine Status Have you recieved a Covid-19 vaccination: Yes 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 - Vaccination Dates Date of 2cond Vaccination (if applicable): unknown - Review of Systems Constitutional: No Symptoms Eyes: No Symptoms Ears, Nose, & Throat: No Symptoms Respiratory: No Symptoms, No Cough, No Dyspnea Cardiac: No Symptoms, No Chest Pain, No Edema, No Syncope Abdominal/Gastrointestinal: No Symptoms, No Abdominal Pain, No Nausea, No Vomiting, No Diarrhea Genitourinary Symptoms: No Symptoms, No Dysuria Musculoskeletal: No Symptoms, No Back Pain, No Neck Pain Skin: No Symptoms, No Rash Neurological: No Symptoms, No Dizziness, No Focal Weakness, No Sensory Changes Psychological: No Symptoms Endocrine: No Symptoms Hematologic/Lymphatic: No Symptoms Immunological/Allergic: No Symptoms All Other Systems: Reviewed and Negative - Past Medical History Pertinent Past Medical History: Yes Neurological History: No Pertinent History ENT History: No Pertinent History Cardiac History: High Cholesterol, Hypertension, Myocardial Infarction ([place]) Respiratory History: No Pertinent History Endocrine Medical History: No Pertinent History Musculoskeletal History: No Pertinent History GI Medical History: Colitis, Ulcer History: No Pertinent History Psycho-Social History: No Pertinent History Female Reproductive Disorders: No Pertinent History Other Medical History: Open heart surgery 5 years ago. Intestinal resection 07/22/20 - Past Surgical History Past Surgical History: Yes Neuro Surgical History: No Pertinent History Cardiac: CABG, Cardiac Catheterization, Cardiac Stent Respiratory: No Pertinent History Gastrointestinal: No Pertinent History, Bowel Surgery Genitourinary: No Pertinent History Musculoskeletal: No Pertinent History Female Surgical History: Hysterectomy Other Surgical History: childbirth x two,open heart december 25 2013 double bipass and carotid artery. cardiac stent [address] padilla - Social History Smoking Status: Never smoker Exposure to second hand smoke: No Drug Use: none Patient Lives Alone: No - Nursing Vital Signs Nursing Vital Signs: Initial Vital Signs Temperature 99.1 F 06/24/23 21:44 Pulse Rate 62 06/24/23 21:44 Respiratory Rate 18 06/24/23 21:44 Blood Pressure 158/72 06/24/23 21:44 O2 Sat by Pulse Oximetry 97 06/24/23 21:44 Pain Scale Pain Intensity 6 - Physical Exam General Appearance: no apparent distress, alert Eye Exam: PERRL/EOMI, eyes nml inspection Ears, Nose, Throat Exam: normal ENT inspection, TMs normal, pharynx normal, moist mucous membranes Neck Exam: normal inspection, non-tender, supple, full range of motion Respiratory Exam: normal breath sounds, lungs clear, airway intact, No respirat ory distress Cardiovascular Exam: regular rate/rhythm, normal heart sounds, normal peripheral pulses Gastrointestinal/Abdomen Exam: soft, normal bowel sounds, No tenderness, No mass Back Exam: normal inspection, normal range of motion, No CVA tenderness, No vertebral tenderness Extremity Exam: normal inspection, normal range of motion, pelvis stable Neurologic Exam: alert, oriented x 3, cooperative, normal mood/affect, sensation nml, No motor deficits Skin Exam: normal color, warm, dry, No rash Lymphatic Exam: No adenopathy SpO2 Interpretation: normal SpO2: 97 O2 Delivery: Room Air - Course Nursing assessment & vital signs reviewed: Yes - Radiology Exams Chest X-ray Interpretation: Interpreted by me (Nonacute chest with chronic features) Ordered Tests: Active Orders 24 hr Category Date Time Status CHEST 1 VIEW (PORTABLE) Stat Exams 06/24/23 22:11 Ordered Lab/Rad Data: Laboratory Results 06/24/23 Range/Units 22:26 Influenza Type A Ag NEGATIVE (NEGATIVE) Influenza Type B Ag NEGATIVE (NEGATIVE) RSV (PCR) POSITIVE (NEGATIVE) SARS-CoV-2 (PCR) NEGATIVE (NEGATIVE) Group A Strep Antibody NOT DETECTED (NEGATIVE) - Progress Progress: improved Progress Note: 83-year-old female presents to our ED with a chronic dry cough. Patient advised to switch losartan. Chest x-ray is similar to previous x-ray. No acute changes observed. Formal read pending. Patient is RSV positive. IM Decadron administered. 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 They will follow-up with him to see if he be willing to switch the losartan as a trial to see if her cough improves. Portions of this note were created with voice recognition technology. There may be grammatical, spelling, punctuation or sound alike errors Complexity of problems addressed is moderate acute complicated No critical care time Complex of data reviewed and analyzed is moderate. Test ordered test reviewed. Chest x-ray reviewed independently by Dr. Kilgore. Risk of complication and or risk of morbidity/mortality patient management is moderate. Patient received IM Decadron Vital stable. Time spent to discharge patient is approximately 15 minutes. Plan of care established for shared decision making. No social determinants of health present impede follow-up. Portions of this note were created with voice recognition technology. There may be grammatical, spelling, punctuation or sound alike errors 06/24/23 23:57 Counseled pt/family regarding: diagnosis, need for follow-up, rad results - Departure Departure Disposition: Home Clinical Impression: Chronic cough, RSV/bronchiolitis Condition: Stable Critical Care Time: No Referrals: KYLER BARROS MD [Primary Care Provider] - Follow up/PCP as directed Additional Instructions: Discharge/Care Plan GO WHITMORE was seen on 06/24/23 in the Emergency Room. The patient was counseled regarding Diagnosis,Lab results, Imaging studies, need for follow up and when to return to the Emergency Room. Prescriptions given: Discharge Note I have spoken with the patient and/or caregivers. I have explained the patient's condition, diagnosis and treatment plan based on the information available to me at this time. I have answered the patient's and/or caregiver's questions and addressed any concerns. The patient and/or caregivers have as good understanding of the patient's diagnosis, condition and treatment plan as can be expected at this point. The vital signs have been stable. The patient's condition is stable and appropriate for discharge from the emergency department. The patient will pursue further outpatient evaluation with the primary care physician or other designated or consulting physician as outlined in the discharge instructions. The patient and/or caregivers are agreeable to this plan of care and follow-up instructions have been explained in detail. The patient and/or caregivers have received these instruction. The patient/and or caregivers are aware that any significant change in condition or worsening of symptoms should prompt an immediate return to this or the closest emergency department or call 911.
[2023-06-24] MEDS ORDERED: DECADRON 10MG INJ. IM ONE (23:56)
[2023-06-25] MEDS ORDERED: DECADRON 10MG INJ. ONE (00:11)
[2023-06-25 00:15] VITALS: PULSE 64; RESP 18; O2SAT 96
--- NOTE | 2023-06-25 08:52 | XRAY ---
Indication: Cough. Comparison: April 03, 2023 Portable apical lordotic chest again hyperinflated and clear. Heart not enlarged again with CABG. Bony thorax intact again with osteopenia and minimal scoliosis. Impression: Continued nonacute chest with chronic features.
== END 2023-06-25 00:24 | disposition home or self-care (01) ==
LOC: ED 21:01
DX: J21.0 Acute bronchiolitis due to respiratory syncytial virus (principal); R05.3 Chronic cough; E78.5 Hyperlipidemia, unspecified; I10 Essential (primary) hypertension; Z79.01 Long term (current) use of anticoagulants; Z79.899 Other long term (current) drug therapy; Z20.828 Contact with and (suspected) exposure to other viral communicable diseases
CPT/HCPCS: 0241U; 71045; 87651; 96372; 99283; J1100

== ENCOUNTER 2023-06-27 16:09 | Emergency (ER) | payer MEDICARE, BC ==
--- NOTE | 2023-06-27 16:13 | ERPHSYRPT ---
- History of Present Illness Time Seen by Provider: 06/27/23 16:12 Source: patient, family Exam Limitations: no limitations Physician History: This is an 83-year-old white female patient of Dr. Luna who has been coughing for approximately 3 months and the coughing is getting worse. She was last seen here in our emergency department on 06/24/2023 and diagnosed with RSV bronchiolitis. Patient has yet to see a digital project coordinator. However, she does have an appointment to see 1 in approximately 3 months. Patient has seen her assistant professor of religion relatively recently. Patient is also seen her primary care provider who thought she might have laryngoracheobronchitis from acid reflux. She was started on proton pump inhibitor. Patient denies chest pain. She does have shortness of breath associated with her cough. She has expiratory wheezes as well. Additional independent history was obtained from the patient's spouse because the patient has been diagnosed with dementia and she is a poor historian. Patient's cough has now changed to a productive 1 with yellowish bloody sputum. Patient has a history of dementia, coronary disease having had a CABG in cardiac stent in place, patient is on Eliquis, patient has hypertension and hyperlipidemia as well as peripheral vascular disease. She denies vomiting and diarrhea. She also denies abdominal pain Possible Cause: frequent episodes (The last 3 months) Modifying Factors: Improves With: coughing Associated Symptoms: chest pain/soreness (Secondary to coughing), cough, muscle aches, shortness of breath, sore throat, No fever Allergies/Adverse Reactions: No Known Drug Allergies Allergy (Verified 06/27/23 16:18) Home Medications: Metoprolol Succinate 50 mg [Toprol Xl 50 MG] 50 mg PO BID 01/02/14 [History] Losartan Potassium 50 mg [Cozaar 50 MG] 25 mg PO DAILY 01/18/17 [History] Apixaban [Eliquis] 5 mg PO DAILY 07/24/20 [History] Atorvastatin Calcium 10 mg PO EVENING MEAL 07/24/20 [History] dilTIAZem HCL [Diltiazem 24Hr ER] 1 cap PO DAILY 07/24/20 [History] Aspirin EC 81 mg [Ecotrin 81 mg] 81 mg PO DAILY 06/01/22 [History] Ferrous Sulfate 325 mg [Feosol 325 mg] 325 mg PO DAILY 06/01/22 [History] Isosorbide Mononitrate [Isosorbide Mononitrate ER] 30 mg PO DAILY 06/01/22 [History] Memantine HCl [Namenda] 1 tab PO BID 06/01/22 [History] Ropinirole HCl 1 mg PO QID 06/01/22 [History] Hx Tetanus, Diphtheria Vaccination/Date Given: Yes Hx Influenza Vaccination/Date Given: Yes Hx Pneumococcal Vaccination/Date Given: No Travel Risk - International Travel Have you traveled outside of the country in past 3 weeks: No - Coronavirus Screening Are you exhibiting any of the following symptoms?: Yes Symptoms: Cough: New Onset, Shortness of Breath Close contact with a COVID-19 positive Pt in past 14-21 Days: No - Vaccine Status Have you recieved a Covid-19 vaccination: Yes Makeup Artist: Moderna - Vaccination Dates Date of 2cond Vaccination (if applicable): unknown - Review of Systems Constitutional: No Symptoms Eyes: Photophobia Ears, Nose, & Throat: No Symptoms Respiratory: Cough, Dyspnea, Wheezing Cardiac: No Symptoms Abdominal/Gastrointestinal: No Symptoms Genitourinary Symptoms: No Symptoms Musculoskeletal: No Symptoms Skin: No Symptoms Neurological: No Symptoms Psychological: No Symptoms Endocrine: No Symptoms Hematologic/Lymphatic: No Symptoms Immunological/Allergic: No Symptoms All Other Systems: Reviewed and Negative - Past Medical History Pertinent Past Medical History: Yes Neurological History: No Pertinent History ENT History: No Pertinent History Cardiac History: High Cholesterol, Hypertension, Myocardial Infarction (MT) Respiratory History: No Pertinent History Endocrine Medical History: No Pertinent History Musculoskeletal History: No Pertinent History GI Medical History: Colitis, Ulcer History: No Pertinent History Psycho-Social History: No Pertinent History Female Reproductive Disorders: No Pertinent History Other Medical History: Open heart surgery 5 years ago. Intestinal resection 07/22/20 - Past Surgical History Past Surgical History: Yes Neuro Surgical History: No Pertinent History Cardiac: CABG, Cardiac Catheterization, Cardiac Stent Respiratory: No Pertinent History Gastrointestinal: No Pertinent History, Bowel Surgery Genitourinary: No Pertinent History Musculoskeletal: No Pertinent History Female Surgical History: Hysterectomy Other Surgical History: childbirth x two,open heart december 25 2013 double bipass and carotid artery. cardiac stent [address] padilla - Social History Smoking Status: Never smoker Exposure to second hand smoke: No Drug Use: none Patient Lives Alone: No - Nursing Vital Signs Nursing Vital Signs: Initial Vital Signs Temperature 98.0 F 06/27/23 16:23 Pulse Rate 62 06/27/23 16:23 Respiratory Rate 18 06/27/23 16:23 Blood Pressure 158/77 06/27/23 16:23 O2 Sat by Pulse Oximetry 94 L 06/27/23 16:23 Pain Scale Pain Intensity 0 - Physical Exam General Appearance: mild distress, alert, anxiety, obese Eye Exam: PERRL/EOMI, eyes nml inspection Ears, Nose, Throat Exam: normal ENT inspection, moist mucous membranes Neck Exam: normal inspection, non-tender, supple, full range of motion Respiratory Exam: wheezing (Expiratory bilateral), No chest tenderness, No respiratory distress Cardiovascular Exam: regular rate/rhythm, normal heart sounds, normal peripheral pulses Pelvic Exam: not done Rectal Exam: not done Extremity Exam: normal inspection, normal range of motion, pelvis stable Neurologic Exam: alert, oriented x 3, cooperative, hydrometeorologist II-XII nml as tested, nml cerebellar function, nml station & gait, sensation nml Skin Exam: normal color, warm, dry SpO2 Interpretation: borderline oxygenation O2 Delivery: Room Air - Course Nursing assessment & vital signs reviewed: Yes Ordered Tests: Active Orders 24 hr Category Date Time Status Book Publisher STAT Care 06/27/23 16:48 Active EKG-ER Only STAT Care 06/27/23 16:47 Active IV Insertion STAT Care 06/27/23 16:47 Active Pulse Oximetry (ED) STAT Care 06/27/23 16:47 Active CHEST 1 VIEW (PORTABLE) Stat Exams 06/27/23 16:48 Completed CBC W DIFF Stat Lab 06/27/23 16:30 Completed CMP Stat Lab 06/27/23 16:30 Completed D-DIMER QUANTITATIVE Stat Lab 06/27/23 16:30 Completed NT PRO BNPII Stat Lab 06/27/23 16:30 Completed PROTIME WITH INR Stat Lab 06/27/23 16:30 Completed TROPONIN Q4H Lab 06/27/23 16:30 Completed TROPONIN Q4H Lab 06/27/23 21:00 Ordered TROPONIN Q4H Lab 06/28/23 01:00 Ordered Respiratory Therapy Assessment DAILY RT 06/27/23 16:43 Active Medication Summary Discontinued Medications Generic Name Dose Route Start Last Admin Trade Name Freq PRN Reason Stop Dose Admin Hydrocodone Bitart/Acetaminophen 10 ml 06/27/23 16:48 06/27/23 16:56 Hydrocodone/Acetaminophen 5 Ml Udcup PO 06/27/23 16:49 10 ml STAT STA Administration Hydrocodone Bitart/Acetaminophen Confirm 06/27/23 16:51 Hydrocodone/Acetaminophen 5 Ml Udcup Administered 06/27/23 16:52 Dose 10 ml .ROUTE .STK-MED ONE Albuterol/Ipratropium 3 ml 06/27/23 16:39 06/27/23 16:40 Ipratropium/Albuterol Sulfate 3 Ml Ampul.Neb IH 06/27/23 16:40 3 ml STAT ONE Administration Albuterol/Ipratropium Confirm 06/27/23 16:39 Ipratropium/Albuterol Sulfate 3 Ml Ampul.Neb Administered 06/27/23 16:40 Dose 3 ml IH .STK-MED ONE Methylprednisolone Sodium 0 mg 06/27/23 16:47 06/27/23 16:57 Succinate 125 mg/ Sterile IV 06/27/23 16:48 125 mg Water 2 ml STAT ONE Administration Methylprednisolone Sodium Succinate Confirm 06/27/23 16:52 Methylprednis Sod Succ 125 Mg/2 Ml Vial Administered 06/27/23 16:53 Dose 125 mg .ROUTE .STK-MED ONE Sterile Water Confirm 06/27/23 16:51 Water For Injection,Sterile 10 Ml Vial Administered 06/27/23 16:52 Dose 10 ml IJ .STK-MED ONE Lab/Rad Data: Laboratory Result Diagrams 06/27/23 16:30 06/27/23 16:30 Laboratory Results 06/27/23 06/27/23 06/27/23 Range/Units 17:00 16:30 16:30 WBC (4.0-10.5) x10^3/uL RBC (4.1-5.4) x10^6/uL Hgb (12.0-16.0) g/dL Hct (35-47) % MCV (78-100) fL MCH (26-32) pg MCHC (32-36) g/dL RDW (11.5-14.0) % Plt Count (150-450) x10^3/uL MPV (7.5-11.0) fL Gran % (36.0-66.0) % Immature Gran % (Auto) (0.00-0.4) % Nucleat RBC Rel Count (0.00-0.1) % Eos # (Auto) (0-0.5) x10^3/uL Immature Gran # (Auto) (0.00-0.03) x10^3u/L Absolute Lymphs (auto) (1.0-4.6) x10^3/uL Absolute Monos (auto) (0.0-1.3) x10^3/uL Absolute Nucleated RBC (0.00-0.01) x10^3u/L Lymphocytes % (24.0-44.0) % Monocytes % (0.0-12.0) % Eosinophils % (0.00-5.0) % Basophils % (0.0-0.4) % Absolute Granulocytes (1.4-6.9) x10^3/uL Basophils # (0-0.4) x10^3/uL PT 10.5 (9.4-12.5) SECONDS INR 0.96 (0.8-3.0) D-Dimer < 0.19 (0.0-0.50) mg/L Sodium (137-145) mmol/L Potassium (3.5-5.1) mmol/L Chloride (98-107) mmol/L Carbon Dioxide (22-30) mmol/L Anion Gap (5-15) MEQ/L BUN (7-17) mg/dL Creatinine (0.52-1.04) mg/dL Estimated GFR ML/MIN Glucose (74-106) mg/dL Calcium (8.4-10.2) mg/dL Total Bilirubin (0.2-1.3) mg/dL AST (14-36) U/L ALT (0-35) U/L Alkaline Phosphatase (38-126) U/L Troponin I < 0.012 (0.000-0.034) ng/mL NT-Pro-B Natriuret Pep (<300) pg/mL Serum Total Protein (6.3-8.2) g/dL Albumin (3.5-5.0) g/dL Influenza Type A Ag NEGATIVE (NEGATIVE) Influenza Type B Ag NEGATIVE (NEGATIVE) RSV (PCR) POSITIVE (NEGATIVE) SARS-CoV-2 (PCR) NEGATIVE (NEGATIVE) 06/27/23 06/27/23 Range/Units 16:30 16:30 WBC 5.7 (4.0-10.5) x10^3/uL RBC 4.02 L (4.1-5.4) x10^6/uL Hgb 13.0 (12.0-16.0) g/dL Hct 39.6 (35-47) % MCV 98.5 (78-100) fL MCH 32.3 H (26-32) pg MCHC 32.8 (32-36) g/dL RDW 12.2 (11.5-14.0) % Plt Count 184 (150-450) x10^3/uL MPV 10.6 (7.5-11.0) fL Gran % 53.1 (36.0-66.0) % Immature Gran % (Auto) 0.4 (0.00-0.4) % Nucleat RBC Rel Count 0.0 (0.00-0.1) % Eos # (Auto) 0.14 (0-0.5) x10^3/uL Immature Gran # (Auto) 0.02 (0.00-0.03) x10^3u/L Absolute Lymphs (auto) 1.82 (1.0-4.6) x10^3/uL Absolute Monos (auto) 0.67 (0.0-1.3) x10^3/uL Absolute Nucleated RBC 0.00 (0.00-0.01) x10^3u/L Lymphocytes % 32.0 (24.0-44.0) % Monocytes % 11.8 (0.0-12.0) % Eosinophils % 2.5 (0.00-5.0) % Basophils % 0.2 (0.0-0.4) % Absolute Granulocytes 3.03 (1.4-6.9) x10^3/uL Basophils # 0.01 (0-0.4) x10^3/uL PT (9.4-12.5) SECONDS INR (0.8-3.0) D-Dimer (0.0-0.50) mg/L Sodium 130 L (137-145) mmol/L Potassium 4.3 (3.5-5.1) mmol/L Chloride 101 (98-107) mmol/L Carbon Dioxide 22 (22-30) mmol/L Anion Gap 11.5 (5-15) MEQ/L BUN 16 (7-17) mg/dL Creatinine 1.15 H (0.52-1.04) mg/dL Estimated GFR 46.7 ML/MIN Glucose 82 (74-106) mg/dL Calcium 8.6 (8.4-10.2) mg/dL Total Bilirubin 0.40 (0.2-1.3) mg/dL AST 43 H (14-36) U/L ALT 39 H (0-35) U/L Alkaline Phosphatase 81 (38-126) U/L Troponin I (0.000-0.034) ng/mL NT-Pro-B Natriuret Pep 405 (<300) pg/mL Serum Total Protein 6.5 (6.3-8.2) g/dL Albumin 3.9 (3.5-5.0) g/dL Influenza Type A Ag (NEGATIVE) Influenza Type B Ag (NEGATIVE) RSV (PCR) (NEGATIVE) SARS-CoV-2 (PCR) (NEGATIVE) - Progress Progress: improved, re-examined Air Movement: fair Progress Note: 06/27/23 17:12 This patient's medical issue is 1 of at least moderate complexity. Level complex in the workup performed is based on the review of the patient's past medical history, review of the patient's medication list, review of the patient's drug allergy list, history present illness and physical findings on examination. The workup in this patient include placement of intravenous line, RT evaluation with DuoNeb treatment, Solu-Medrol infusion intravenously, CBC, CMP, twelve-lead EKG, chest x-ray, BNP, D-dimer level, viral swabs and mono screen. 06/27/23 17:31 Chest x-ray interpreted by the radiologist. I reviewed the impression. Hyperinflated and clear. Heart not enlarged. CABG present. No new/acute findings 06/27/23 18:53 The laboratory data results were interpreted by me. The patient is positive for RSV bronchiolitis. The patient's room air oxygen saturation level is running between 95 and 97%. We will send hydrocodone elixir home with the patient to take at 11 PM this evening. We will also remotely send a prescription of the same to her pharmacy as well as prednisone 10 mg. Blood Culture(s) Obtained: Yes Antibiotics given: No Counseled pt/family regarding: lab results, diagnosis, rad results Medical Desision Making - Independent Historian Additional History obtained from: Spouse - Diagnostic Testing Diagnostic test were ordered, analyzed, and reviewed by me: Yes Radiological Interpretation: Reviewed by me, Teleradiologist Report - Departure Departure Disposition: Home Clinical Impression: RSV bronchiolitis Condition: Stable Critical Care Time: No Referrals: KYLER LUNA MD [Primary Care Provider] - Follow up/PCP as directed Additional Instructions: Give plenty of clear liquids to drink. Avoid any exposure to smoke. Take the steroid and cough medicine as prescribed. Take your other medication as pr escribed. Prescriptions: Prednisone 10 mg [Deltasone 10 mg] 10 mg PO TID #12 tablet Hydrocodone/Acetaminophen [Hydrocodone-Acetamn 7.5-325/15] 10 ml PO Q8H PRN #120 ml MDD 30 ml PRN Reason: Cough Albuterol 8 gm Mdi Hfa [Ventolin Hfa MDI] 8 gm IH Q4H #1 unit
[2023-06-27 16:33] VITALS: TEMP 98
[2023-06-27] MEDS ORDERED: DUONEB 0.5-3 MG/3 ml Neb IH ONE ×2 (16:39)
[2023-06-27] MEDS ORDERED: solu-MEDROL 125 MG, Sterile H2O 10 ml 2 ML IV ONE ×2 (16:47)
[2023-06-27] MEDS ORDERED: HYDROCODONE-ACETAMIN 2.5-108/5 ML SOLUTION PO STA ×2 (16:48→19:00)
[2023-06-27] MEDS ORDERED: HYDROCODONE-ACETAMIN 2.5-108/5 ML SOLUTION ONE ×2 (16:51→19:22)
[2023-06-27] MEDS ORDERED: Sterile H2O 10 ml IJ ONE (16:51)
[2023-06-27] MEDS ORDERED: solu-MEDROL ONE (16:52)
[2023-06-27 17:05] LABS: Absolute Neutrophil Ct (ANC) 3.03 x10^3/uL (1.4-6.9); BASOPHIL % 0.2 % (0.0-0.4); Basophil (Absolute #) 0.01 x10^3/uL (0-0.4); Eosinophil % 2.5 % (0.00-5.0); Eosinophil (Absolute #) 0.14 x10^3/uL (0-0.5); Hematocrit 39.6 % (35-47); IMMATURE GRAN # 0.02 x10^3u/L (0.00-0.03); IMMATURE GRAN % 0.4 % (0.00-0.4); Lymphocyte (Absolute #) 1.82 x10^3/uL (1.0-4.6); Mean Cell Volume 98.5 fL (78-100); Mean Corpuscular Hemoglobin 32.3 pg (26-32); Mean Corpuscular Hgb Concent. 32.8 g/dL (32-36); Mean Platelet Volume 10.6 fL (7.5-11.0); Monocyte (Absolute #) 0.67 x10^3/uL (0.0-1.3); Monocytes % 11.8 % (0.0-12.0); Neutrophil % 53.1 % (36.0-66.0); Platelet Count 184 x10^3/uL (150-450); Red Blood Count 4.02 x10^6/uL (4.1-5.4); Red Cell Distribution Width 12.2 % (11.5-14.0); White Blood Count 5.7 x10^3/uL (4.0-10.5)
--- NOTE | 2023-06-27 17:05 | XRAY ---
Indication: Cough and short of breath. Comparison: June 24, 2023 Portable chest remains hyperinflated and clear. Heart not enlarged again with CABG. No new/acute findings.
[2023-06-27 17:20] LABS: D-DIMER QUANTITATIVE < 0.19 mg/L (0.0-0.50); INR 0.96 (0.8-3.0); PROTIME 10.5 SECONDS (9.4-12.5)
[2023-06-27 17:36] LABS: ALBUMIN 3.9 g/dL (3.5-5.0); ANION GAP 11.5 MEQ/L (5-15); BILIRUBIN,TOTAL 0.4 mg/dL (0.2-1.3); Calcium 8.6 mg/dL (8.4-10.2); Creatinine 1 1.15 mg/dL (0.52-1.04); EST GLOMERULAR FILTRATION RATE 46.7 ML/MIN; Potassium 4.3 mmol/L (3.5-5.1); Total Protein 6.5 g/dL (6.3-8.2)
[2023-06-27 17:45] LABS: INFLUENZA A NEGATIVE (NEGATIVE); INFLUENZA B NEGATIVE (NEGATIVE); SARS-CoV-2 Xpert Express NEGATIVE (NEGATIVE)
[2023-06-27 17:48] LABS: RESPIRATORY SYNCTIAL VIRUS POSITIVE (NEGATIVE)
[2023-06-27 19:27] VITALS: BP 154/66; PULSE 58; RESP 18; O2SAT 96
== END 2023-06-27 19:44 | disposition home or self-care (01) ==
LOC: ED 16:09
DX: J21.0 Acute bronchiolitis due to respiratory syncytial virus (principal); R05.3 Chronic cough; E78.5 Hyperlipidemia, unspecified; I10 Essential (primary) hypertension; Z79.01 Long term (current) use of anticoagulants; Z79.52 Long term (current) use of systemic steroids; Z79.891 Long term (current) use of opiate analgesic; Z79.899 Other long term (current) drug therapy
CPT/HCPCS: 0241U; 36000; 36415; 71045; 80053; 83880; 84484; 85025; 85379; 85610; 93005; 93041; 94640; 94760; 96374; 99284; J2930; A9270-GY

== ENCOUNTER 2025-04-29 14:39 | Emergency (ER) | payer MEDICARE, BC ==
[2025-04-29 14:51] VITALS: BP 147/73; PULSE 66; RESP 16; TEMP 97; O2SAT 94
--- NOTE | 2025-04-29 15:44 | ERPHSYRPT ---
- History of Present Illness Time Seen by Provider: 04/29/25 14:50 Source: patient, family Exam Limitations: no limitations Patient Subjective Stated Complaint: PT CO PAIN TO MEDIAL ASPECT OF LEFT FOOT FOR UP TO 3 WEEKS. SHE DENEIS ANY INJURY. ICE HELPS AT HOME Triage Nursing Assessment: PT ALERT, WALKED IN, RESP EASY, SKIN W/D/P, HAS SLIGHT SWELLING TO MEDIAL ASPECT OF LEFT FOOT, FOOT WARM WITH STRONG PULSES Physician History: This is an 85-year-old white female patient of Dr. Luna who arrives by private vehicle accompanied by her spouse with a complaint of left foot pain that has been present for 3 weeks at least. There is no recollection of her injuring the left foot. Patient has a history of hypertension, atrial fibrillation on Eliquis, hyperlipidemia, peripheral neuropathy and dementia. Method of Injury: unknown Occurred: other (Pain present for 3 weeks) Quality: aching Severity of Pain-Max: mild Severity of Pain-Current: mild Lower Extremities Pain: foot: left (Inner aspect) Modifying Factors: Improves With: movement Associated Symptoms: other (Hurts to bear weight but has been doing so) Allergies/Adverse Reactions: No Known Drug Allergies Allergy (Verified 04/29/25 14:49) Home Medications: Metoprolol Succinate 50 mg [Toprol Xl 50 MG] 50 mg PO BID 01/02/14 [History] Losartan Potassium 50 mg [Cozaar 50 MG] 25 mg PO DAILY 01/18/17 [History] Apixaban [Eliquis] 2.5 mg PO BID 07/24/20 [History] Atorvastatin Calcium 10 mg PO EVENING MEAL 07/24/20 [History] dilTIAZem HCL [Diltiazem 24Hr ER] 1 cap PO DAILY 07/24/20 [History] Aspirin EC 81 mg [Ecotrin 81 mg] 81 mg PO DAILY 06/01/22 [History] Ferrous Sulfate 325 mg [Feosol 325 mg] 325 mg PO DAILY 06/01/22 [History] Isosorbide Mononitrate [Isosorbide Mononitrate ER] 30 mg PO DAILY 06/01/22 [History] Memantine HCl [Namenda] 1 tab PO BID 06/01/22 [History] Ropinirole HCl 1 mg PO QID 06/01/22 [History] Famotidine 20 mg [Pepcid 20 MG] 20 mg PO DAILY 02/19/24 [History] Gabapentin [Neurontin ] 300 mg PO HS 02/19/24 [History] Temazepam 30 mg PO HS 02/05/25 [History] Hx Tetanus, Diphtheria Vaccination/Date Given: Yes Hx Influenza Vaccination/Date Given: Yes Hx Pneumococcal Vaccination/Date Given: No Immunizations Up to Date: Yes Travel Risk - International Travel Have you traveled outside of the country in past 3 weeks: No - Emerging Infectious Disease Are you exhibiting symptoms associated with any current EIDs: No - Review of Systems Constitutional: No Symptoms Eyes: No Symptoms Ears, Nose, & Throat: No Symptoms Respiratory: No Symptoms Cardiac: No Symptoms Abdominal/Gastrointestinal: No Symptoms Genitourinary Symptoms: No Symptoms Musculoskeletal: Other (Left foot paininner aspect) Skin: No Symptoms Neurological: No Symptoms Psychological: No Symptoms Endocrine: No Symptoms Hematologic/Lymphatic: No Symptoms Immunological/Allergic: No Symptoms All Other Systems: Reviewed and Negative - Past Medical History Pertinent Past Medical History: Yes Neurological History: No Pertinent History ENT History: No Pertinent History Cardiac History: No Pertinent History Respiratory History: No Pertinent History Endocrine Medical History: No Pertinent History Musculoskeletal History: No Pertinent History GI Medical History: Colitis, Ulcer History: No Pertinent History Psycho-Social History: No Pertinent History Female Reproductive Disorders: No Pertinent History Other Medical History: Open heart surgery 5 years ago. Intestinal resection 07/22/20 - Past Surgical History Past Surgical History: Yes Neuro Surgical History: No Pertinent History Cardiac: CABG, Cardiac Catheterization, Cardiac Stent Respiratory: No Pertinent History Gastrointestinal: No Pertinent History, Bowel Surgery Genitourinary: No Pertinent History Musculoskeletal: No Pertinent History Female Surgical History: Hysterectomy Other Surgical History: childbirth x two,open heart december 25 2013 double bipass and carotid artery. cardiac stent [address]illa - Social History Smoking Status: Never smoker Exposure to second hand smoke: No Drug Use: none - Social Determinants of Health Will the patient participate in the screening: Yes Do you worry about a steady place to live?: No Do you have any problems with any of the following?: No known problems In the past 12 months,have you had to go without utilities?: No Transportation Issues: No Has anyone in your support network made you feel unsafe?: No Have you or anyone in your house had to go w/o enough food: No - Nursing Vital Signs Nursing Vital Signs: Initial Vital Signs Temperature 97.0 F 04/29/25 14:50 Pulse Rate 66 04/29/25 14:50 Respiratory Rate 16 04/29/25 14:50 Blood Pressure 147/73 04/29/25 14:50 O2 Sat by Pulse Oximetry 94 L 04/29/25 14:50 Pain Scale Pain Intensity 9 - Physical Exam General Appearance: no apparent distress, alert Eyes, Ears, Nose, Throat Exam: normal ENT inspection, moist mucous membranes Neck Exam: normal inspection, non-tender, supple, full range of motion Cardiovascular/Respiratory Exam: chest non-tender, no respiratory distress Gastrointestinal/Abdominal Exam: non-tender Back Exam: normal inspection, normal range of motion, No CVA tenderness, No vertebral tenderness Hips Exam: bilateral: non-tender, normal inspection, normal range of motion Legs Exam: bilateral leg: non-tender, normal inspection, normal range of motion, no evidence of injury Knees Exam: bilateral knee: non-tender, normal inspection, normal range of motion, no evidence of injury Ankle Exam: bilateral ankle: non-tender, normal inspection, normal range of motion, no evidence of injury Foot Exam: right foot: non-tender, left foot: bone tenderness (Inner aspect left foot), bilateral foot: normal inspection, normal range of motion, no evidence of injury Neuro/Tendon Exam: normal sensation, normal motor functions, normal tendon functions Mental Status Exam: alert, oriented x 3, cooperative Skin Exam: normal color, warm, dry SpO2 Interpretation: borderline oxygenation SpO2: 94 O2 Delivery: Room Air - Course Nursing assessment & vital signs reviewed: Yes Ordered Tests: Active Orders 24 hr Category Date Time Status FOOT (MINIMUM 3 VIEWS) Stat Exams 04/29/25 14:53 Taken - Progress Progress: unchanged Progress Note: 04/29/25 15:43 My medical decision making and the assignment of low complexity of this patient's medical issue today is based on review of the patient's past medical history, review the patient's medication list, reviewed patient drug allergy list, history of present illness and physical findings on examination. The workup in this patient includes x-ray of the patient's left foot. Differential diagnosis includes but is not limited to worsening peripheral neuropathy, contusion left foot, fracture left foot, dislocation left foot. The patient has no recollection of injury. The patient has strong pedal pulses that are symmetric. There is no evidence of cellulitis. I did not order an ultrasound of this area because it would be an atypical area for DVT. In addition, the patient is already taking Eliquis. There is no evidence of significant swelling. Counseled pt/family regarding: diagnosis, need for follow-up, rad results Medical Desision Making - Independent Historian Additional History obtained from: Spouse - Diagnostic Testing Diagnostic test were ordered, analyzed, and reviewed by me: Yes Radiological Interpretation: Interpreted by me - Risk of complications Low Risk: Low risk of morbidity from additional dx testing or treatment - Departure Departure Disposition: Home Clinical Impression: Left foot pain Condition: Stable Critical Care Time: No Referrals: KYLER LUNA MD [Primary Care Provider, [facility]] - Follow up/PCP as directed Additional Instructions: Ice pack to tender area 3 times a day. May add Tylenol 3-4 times a day to help with pain control. Call your primary care provider on 05/02/2025 to make arrangements for follow-up appointment or to be referred to podiatry. Activity as tolerated.
--- NOTE | 2025-04-29 16:07 | XRAY ---
Indication: Pain 3 weeks. No known injury. Comparison: None 3 nonweightbearing views left foot demonstrates osteopenia, small posterior/plantar heel spurs, minimal vascular calcifications, and posterior lower leg surgical clips. No other bony, articular, or soft tissue abnormalities.
== END 2025-04-29 16:05 | disposition home or self-care (01) ==
LOC: ED 14:39
DX: M79.672 Pain in left foot (principal); I10 Essential (primary) hypertension; Z79.01 Long term (current) use of anticoagulants; Z79.899 Other long term (current) drug therapy